=== PATIENT | female | born 1985 | race Caucasian/White ===

== ENCOUNTER 2020-03-06 17:03 | Emergency (ER) | payer MEDICAID, SELFPAY ==
[2020-03-06 18:10] VITALS: BP 121/64; PULSE 78; RESP 18; TEMP 36.8; O2SAT 99; BMI 37.5
--- NOTE | 2020-03-06 18:27 | US_ITS ---
PROCEDURE: US OB >= 14 WEEKS FETUS CLINICAL INDICATION: abdominal pain, preg Pelvic pain, irregular periods COMPARISON: No exams were available for comparison FINDINGS: An intrauterine gestational sac is present with a pole with a crown-rump length of 4.38 cm correlating to gestational age of 11 weeks 2 days. heart tones are present with an FHR of 160 BPM. movement noted. Chorion and amnion have not yet fused. No adnexal mass. Bilateral ovarian blood flow is noted. IMPRESSION: Live IUP at 11 weeks 2 days Estimated due date by Ultrasound is . 09/23/2020 Dictated by: Mg Vigil MD 03/07/2020 06:21 Mg Vigil MD in [place] 03/07/2020 06:21
--- NOTE | 2020-03-06 18:27 | HMH.EDUTC ---
[facility] [place] Clinical Impression: Abdominal pain Qualifiers: Abdominal location: unspecified location Qualified Code(s): R10.9 - Unspecified abdominal pain Disposition: Still a Patient Condition on Discharge: Good Referrals: Geneva Aaron [Primary Care Provider] - Time of Disposition: 18:35 Medical Decision Making - Geoffrey Inquiry Pt receiving controlled substance: No Geoffrey was queried for this patient: No Vital Signs: 03/06/20 18:10 Temperature 98.2 F Temperature Source Oral Pulse Rate [Right Brachial] 78 Respiratory Rate 18 Blood Pressure [Right Arm] 121/64 Blood Pressure Mean [Right Arm] 83 Blood Pressure Source [Right Arm] Automatic Cuff Blood Pressure Position [Right Arm] Sitting 02 Sat by Pulse Oximetry 99 Oxygen Delivery Method Room Air Medical Decision Narrative: Urine in [facility] was positive Patient upset that she was in the [facility] rocking back and forth holding her stomach states that she wanted to be seen in the ED not the [facility] and got up to walk out Pt informed of postive Urine and advised that she was being transferred to the ED for further work up and evaluation and patient calmed down Called ED and patient was transferred to the ED to room 5 patient transferred via wheelchair without complications [facility] [place] HPI - General Stated complaint: stomach pains Time Seen by Provider: 03/06/20 18:10 Mode of Arrival: Ambulatory Source of Information: Patient Limitations: No Limitations Description of Symptoms (Recalled from Triage Doc. by RN): PATIENT C/O ABDOMINAL PAIN AND DIARRHEA SINCE YESTERDAY. PATIENT IS HEENT Symptoms (Recalled from RN notes): No Resp Symptoms (Recalled from RN notes): No Skin Symptoms (Recalled from RN notes): No MS Symptoms (Recalled from RN notes): No Functional Status (Recalled from RN notes): WNL - History of Present Illness Provider Complaint: Patient states that she started having pain in her abdomen last night and it has continued to get worse States that she had a little diarrhea earlier and pain initially started in the middle of her abdomen and now has moved all over her abdomen and is more severe State that it feels like someone is ripping her insides out - Worker's Comp Is this a Worker's Comp case?: No [facility] History - Hepatitis A Screen Drug use history?: No High risk sexual behaviors?: No History of sexually transmitted infection?: No Currently employed?: No Childcare worker?: No Do you have indoor plumbing?: Yes Do you have electricity?: Yes Attestation statement:: This patient has been screened for Hepatitis A risk factors. I have reviewed the patient's past medical history: Yes - Social History Alcohol Intake: never Occupational Status: other ROS Obtained: Yes All systems reviewed & no additional complaints, Yes Systems reviewed as appropriate & no additional complaints - Gastrointestinal Gastrointestingal: Reports: abdominal pain, diarrhea. Denies: vomiting Physical Exam - General General appearance: alert, in no apparent distress - Respiratory Respiratory exam: Present: normal lung sounds bilaterally. Absent: respiratory distress - Cardiovascular Cardiovascular exam: Present: regular rate, normal rhythm. Absent: JVD - Abdominal Exam Abdominal tenderness: Present: epigastrium, moderate, severe Comment: Patient reports severe abdominal pain that started in the middle of her abdomen and is now hurting throughout her abdomen and rates pain 10, patient sitting on table holding stomach rocking back and forth - Neurological Exam Neurological exam: Present: alert, oriented X3
[2020-03-06 18:28] LABS: Apearance,Urine Clear (Clear); Color,Urine Yellow (Yellow)
--- NOTE | 2020-03-06 18:28 | PC.NURSE ---
Lab at bedside witnessing IV stick.
[2020-03-06 18:29] LABS: Bilirubin,Urine Negative (Negative); Blood, Urine Trace (Negative); Glucose,Urine (UA) Negative (Negative); Ketones,Urine Negative (Negative); Protein,Urine 1+ (Negative); UTC Leukocyte Esterase,Urine Trace (Negative); UTC Nitrate,Urine Negative (Negative); Urobilinogen,Urine 0.2 EU/dl (0.2)
[2020-03-06 18:31] LABS: UTC Pregnancy Test, Urine Positive (Negative)
[2020-03-06 18:37] VITALS: BP 114/82; PULSE 88; RESP 18; TEMP 37; O2SAT 99; BMI 37.6
--- NOTE | 2020-03-06 18:41 | PC.NURSE ---
at bedside doing bedside ultrasound
[2020-03-06 18:46] LABS: Basophils % 0.2 % (0.1-2.0); Eosinophils # 0.1 K/mm3 (0.0-0.4); Eosinophils % 0.8 % (0.1-12.0); Hematocrit 40.1 % (37.0-47.0); Hemoglobin 13.6 g/dL (12.2-16.2); Lymphocytes # 1.8 K/mm3 (0.7-4.5); Lymphocytes % 15.8 % (10-50); Mean Corpuscular HGB Conc 33.9 g/dL (31.8-35.4); Mean Corpuscular Hemoglobin 25.7 pg (27.0-31.2); Mean Platelet Volume 7.6 fl (7.4-10.4); Monocytes # 0.3 K/mm3 (0.1-1.0); Neutrophils # 9.3 K/mm3 (1.8-7.8); Neutrophils % 80.3 % (37.0-80.0); Platelet Count 345 K/mm3 (142-424); Red Blood Count 5.27 M/mm3 (4.20-5.40); Red Cell Distribution Width 14.3 % (11.5-17.5); White Blood Count 11.5 K/mm3 (4.8-10.8)
--- NOTE | 2020-03-06 18:47 | HMH.EDGENADL ---
ED Disposition Clinical Impression: Nausea/vomiting in Qualifiers: Weeks of gestation: 11 weeks Qualified Code(s): Z3A.11 - 11 weeks gestation of Disposition: Still a Patient Condition on Discharge: Fair Instructions: Nausea and Vomiting-Adult Referrals: Geneva Aaron [Primary Care Provider] - Time of Disposition: 19:54 - Critical Care Critical Care Time: No Attestation: On 03/06/20, the high probability of a clinically significant, sudden or life threatening deterioration of the following system(s) required my full and direct attention, intervention and personal management. The time I documented below is in addition to time spent performing reported procedures but includes the following listed in this critical care notation. Medical Decision Making - Medical Records Medical records reviewed: Yes: I reviewed the patient's medical records. - Geoffrey Inquiry Pt receiving controlled substance: No Vital Signs: 03/06/20 18:10 03/06/20 18:37 03/06/20 19:03 Temperature 98.2 F 98.6 F Temperature Source Oral Oral Pulse Rate [Right Brachial] 78 88 77 Respiratory Rate 18 18 Blood Pressure [Right Arm] 121/64 114/82 131/97 H Blood Pressure Mean [Right Arm] 83 92 108 Blood Pressure Source [Right Arm] Automatic Cuff Automatic Cuff Automatic Cuff Blood Pressure Position [Right Arm] Sitting Sitting Sitting 02 Sat by Pulse Oximetry 99 99 98 Oxygen Delivery Method Room Air Room Air Room Air - Lab Data Lab Results 03/06/20 18:11: Urine Color Yellow, Urine Appearance Clear, Urine pH 7.0, Ur Specific [place] 1.030, Urine Protein 1+, Urine Glucose (UA) Negative, Urine Ketones Negative, Urine Blood Trace, Urine Nitrate Negative, Urine Bilirubin Negative, Urine Urobilinogen 0.2, Ur Leukocyte Esterase Trace 03/06/20 18:30: [facility] Clinic Positive 03/06/20 18:35: WBC 11.5 H, RBC 5.27, Hgb 13.6, Hct 40.1, MCV 76.0 L, MCH 25.7 L, MCHC 33.9, RDW 14.3, Plt Count 345, MPV 7.6, Neut % (Auto) 80.3 H, Lymph % (Auto) 15.8, [place] % (Auto) 3.0, Eos % (Auto) 0.8, Baso % (Auto) 0.2, Neut # (Auto) 9.3 H, Lymph # (Auto) 1.8, [place] # (Auto) 0.3, Eos # (Auto) 0.1, Baso # (Auto) 0.0 03/06/20 18:35: Sodium 136, Potassium 3.7, Chloride 100, Carbon Dioxide 24, Anion Gap 15.7 H, BUN 8, Creatinine 0.60, Estimated Creat Clear 227, Estimated GFR 114, Est GFR ( Amer) 138, Glucose 98, Calcium 9.9, Total Bilirubin 0.6, AST 23, ALT 16, Alkaline Phosphatase 73, Total Protein 8.3 H, Albumin 4.6, Globulin 3.7 H, Albumin/Globulin Ratio 1.2, HCG, Quant [id number] Result diagrams: 03/06/20 18:35 03/06/20 18:35 Orders (Tests/Meds): ORDERS Category Date Time Status Type and Screen Stat BBK 03/06/20 18:35 Received US OB >= 14 weeks Fetus Stat Ultrasound 03/06/20 18:27 Taken Medical Decision Narrative: In summary this is a 34-year-old female presenting to the emergency department with cramping abdominal pain. Patient's urine test was positive in the urgent treatment center. She is G3, P2. Concern for ectopic , intrauterine . Will obtain CBC, CMP, quantitative hCG, urinalysis, transvaginal ultrasound Initial laboratory results are reassuring. Slight leukocytosis at 11 K. No renal insufficiency. No anemia. Urinalysis shows no leukoesterase or nitrites. Transvaginal ultrasound shows an intrauterine , approximately 11 weeks. On reassessment patient has had no nausea or vomiting. Her pain was much improved. She was feeling better, tolerating oral intake, eager for discharge. Counseled that women are not immune to other illnesses like appendicitis or pyelonephritis. However, her abdominal exam is very benign at this time. Given prescription for doxylamine and pyridoxine. Recommended to take as needed for nausea. Instructed to establish with [facility]. General Adult HPI - General Stated complaint: stomach pains Time Seen by Provider: 03/06/20 18:10 Mode of
[2020-03-06 18:53] LABS: Alanine Aminotransferase 16 U/L (12-78); Albumin Level 4.6 g/dl (3.5-5.0); Albumin/Globulin Ratio 1.2 (1.1-1.8); Alkaline Phosphatase 73 U/L (38-126); Anion Gap 15.7 mEq/L (5-15); Aspartate Amino Transferase 23 U/L (14-36); Bilirubin,Total 0.6 mg/dl (0.2-1.3); Blood Urea Nitrogen 8 mg/dl (7-17); Calcium 9.9 mg/dl (8.4-10.2); Carbon Dioxide 24 mmol/L (22.0-30.0); Chloride 100 mmol/L (98-107); Creatinine Clearance Estimated 227 mL/min (50-200); Estimated Glomerular Filt Rate 114 ml/min (>60); GFR (African American) 138 ML/MIN (>60); Globulin 3.7 g/dL (1.3-3.2); Glucose 98 mg/dl (74-100); Potassium 3.7 mmoL/L (3.5-5.1); Sodium 136 mmol/L (136-145); Total Protein,Serum 8.3 g/dl (6.3-8.2)
[2020-03-06 19:03] VITALS: BP 131/97; PULSE 77; O2SAT 98
--- NOTE | 2020-03-06 19:41 | PC.NURSE ---
pt back from US.
[2020-03-06 20:10] VITALS: BP 121/88; PULSE 83; RESP 16; TEMP 36.9; O2SAT 99
== END 2020-03-06 20:12 | disposition still patient (30) ==
LOC: UTC 17:08 → ER 18:22
PROVIDERS: Nurse Practitioner; Emergency Provider Emergency Medicine; PCP General Practice
DX: O21.0 Mild hyperemesis gravidarum (principal); Z3A.11 11 weeks gestation of pregnancy
CPT/HCPCS: 76805; 80053; 81003; 81025; 84702; 85025; 86850; 99283

== ENCOUNTER → 2020-03-14 17:09 | Outpatient (CLI) | payer MEDICAID, SELFPAY ==
[2020-03-14 17:34] LABS: Basophils % 0.2 % (0.1-2.0); Eosinophils # 0.1 K/mm3 (0.0-0.4); Eosinophils % 1.2 % (0.1-12.0); Hematocrit 37.9 % (37.0-47.0); Hemoglobin 11.7 g/dL (12.2-16.2); Lymphocytes # 1.9 K/mm3 (0.7-4.5); Lymphocytes % 22.4 % (10-50); Mean Corpuscular HGB Conc 30.9 g/dL (31.8-35.4); Mean Corpuscular Hemoglobin 24.8 pg (27.0-31.2); Mean Corpuscular Volume 80.2 fl (81-99); Mean Platelet Volume 6.7 fl (7.4-10.4); Monocytes # 0.3 K/mm3 (0.1-1.0); Monocytes % 3.7 % (1.7-9.3); Neutrophils # 6.2 K/mm3 (1.8-7.8); Neutrophils % 72.5 % (37.0-80.0); Platelet Count 306 K/mm3 (142-424); Red Blood Count 4.72 M/mm3 (4.20-5.40); Red Cell Distribution Width 14.1 % (11.5-17.5); White Blood Count 8.6 K/mm3 (4.8-10.8)
[2020-03-16 10:04] LABS: HIV Screen 4th Generation wRfx Non Reactive (Non Reactive); Rubella Antibodies, IgG 3.97 index (Immune >0.99)
[2020-03-16 12:46] LABS: Rapid Plasma Reagin Ab Titer Non Reactive (NonRea<1:1)
[2020-03-17 19:37] LABS: Hepatitis B Surface Antigen Negative (Negative); Hepatitis C Antibody <0.1 s/co ratio (0.0-0.9)
== END ==
PROVIDERS: Visit Provider Nurse Practitioner Obstetrics & Gynecology
DX: Z34.90 Encounter for supervision of normal pregnancy, unspecified, unspecified trimester (principal); Z3A.12 12 weeks gestation of pregnancy
CPT/HCPCS: 36415; 85025; 86592; 86703; 86762; 86850; 87340; 87380; G0432

== ENCOUNTER → 2020-04-11 12:18 | Outpatient (CLI) | payer MEDICAID, SELFPAY ==
[2020-04-13 01:07] LABS: DIA MoM 1.05 (.); DIA Value 129.39 pg/mL (.); DSR (Second Trimester) 1 IN 699 (.); Gest. Age on Collection Date 16.4 WEEKS (.); Maternal Age At EDD 34.8 yr (.); OSBR Risk 1 IN 10000 (.); Results Report (.); hCG MoM 1.79 (.); hCG Value 48575 mIU/mL (.); uE3 MoM 0.86 (.); uE3 Value 0.79 ng/mL (.)
[2020-04-13 05:29] LABS: Gestat. Age Based On EDD (.)
== END ==
PROVIDERS: Visit Provider Nurse Practitioner Obstetrics & Gynecology
DX: Z34.90 Encounter for supervision of normal pregnancy, unspecified, unspecified trimester (principal)
CPT/HCPCS: 36415; 82106

== ENCOUNTER 2020-04-19 12:32 | Emergency (ER) | payer MEDICAID, SELFPAY ==
[2020-04-19 12:33] VITALS: BP 109/73; PULSE 92; RESP 20; TEMP 36.6; O2SAT 98; BMI 37.5
[2020-04-19 12:51] LABS: Appearance,Urine CLEAR (Clear); Bilirubin,Urine Negative (Negative); Blood, Urine Negative (Negative); Color,Urine YELLOW (Yellow); Glucose,Urine (UA) Negative (Negative); Ketones,Urine Negative (Negative); Leukocyte Esterase,Urine 1+ (Negative); Microscopic, Urine URINE MICROSCOPIC (MICROSCOPIC); Nitrate,Urine Negative (Negative); PH,Urine 6.5 (5.0-8.5); Protein,Urine Negative (Negative); Urobilinogen,Urine 0.2 EU/dl (0.2)
[2020-04-19 13:07] LABS: Bacteria,Urine 1+ /lpf
--- NOTE | 2020-04-19 13:21 | US_ITS ---
PROCEDURE: US OB >= 14 WEEKS FETUS CLINICAL INDICATION: Preg, pain COMPARISON: US US OB >= 14 WEEKS FETUS from 03/06/2020 FINDINGS: Approximate ultrasound age 17weeks 4days. Heart rate 143bpm. Cervix length 3.8 centimeters, closed. Cephalic presentation. Anterior placenta. Uterine fibroid. The biparietal diameter consistent with gestational age 17 weeks 6 days. Head circumference consistent with 17 weeks 3 days Abdominal circumference consistent with 17 weeks 2 days Femur length consistent with 17 weeks 5 days HC/AC 1.23 (1.07-1.29) Cephalic index 77 % Femur length BPD 65 % FL/AC 22 % LMP% 35% (3-97%) Maternal left kidney negative for hydronephrosis. Maternal spleen unremarkable. IMPRESSION: ultrasound findings as above. Estimated due date by Ultrasound is 09/23/2020 Dictated by: Oma Pena MD 04/19/2020 15:05 Oma Pena MD in [place] 04/19/2020 15:05
--- NOTE | 2020-04-19 13:39 | PC.NURSE ---
pt in US
[2020-04-19 13:44] LABS: Chloride 106 mmol/L (98-107); Sodium 135 mmol/L (136-145)
[2020-04-19 13:47] LABS: Alanine Aminotransferase 12 U/L (12-78); Albumin Level 3.5 g/dl (3.5-5.0); Albumin/Globulin Ratio 1.1 (1.1-1.8); Alkaline Phosphatase 49 U/L (38-126); Aspartate Amino Transferase 17 U/L (14-36); Bilirubin,Total 0.4 mg/dl (0.2-1.3); Blood Urea Nitrogen 8 mg/dl (7-17); Carbon Dioxide 24 mmol/L (22.0-30.0); Creatinine Clearance Estimated 272 mL/min (50-200); Estimated Glomerular Filt Rate 141 ml/min (>60); GFR (African American) 171 ML/MIN (>60); Globulin 3.2 g/dL (1.3-3.2); Glucose 105 mg/dl (74-100); Total Protein,Serum 6.7 g/dl (6.3-8.2)
[2020-04-19 13:49] LABS: Basophils % 0.1 % (0.1-2.0); Eosinophils # 0.1 K/mm3 (0.0-0.4); Eosinophils % 0.9 % (0.1-12.0); Hematocrit 35.2 % (37.0-47.0); Hemoglobin 11.4 g/dL (12.2-16.2); Lymphocytes # 1.8 K/mm3 (0.7-4.5); Lymphocytes % 19.2 % (10-50); Mean Corpuscular HGB Conc 32.2 g/dL (31.8-35.4); Mean Corpuscular Volume 80.8 fl (81-99); Mean Platelet Volume 7.1 fl (7.4-10.4); Monocytes # 0.3 K/mm3 (0.1-1.0); Monocytes % 3.7 % (1.7-9.3); Neutrophils % 76.2 % (37.0-80.0); Platelet Count 267 K/mm3 (142-424); Red Blood Count 4.36 M/mm3 (4.20-5.40); Red Cell Distribution Width 15.2 % (11.5-17.5); White Blood Count 9.2 K/mm3 (4.8-10.8)
--- NOTE | 2020-04-19 13:50 | HMH.EDGENADL ---
ED Disposition Clinical Impression: Abdominal pain affecting Disposition: Home, Self-Care Condition on Discharge: Good Instructions: DI for Abdominal Pain -- Early Referrals: Geneva Aaron [Primary Care Provider] - - Critical Care Critical Care Time: No Attestation: On 04/19/20, the high probability of a clinically significant, sudden or life threatening deterioration of the following system(s) required my full and direct attention, intervention and personal management. The time I documented below is in addition to time spent performing reported procedures but includes the following listed in this critical care notation. Medical Decision Making - Medical Records Medical records reviewed: Yes: I reviewed the patient's medical records. - Geoffrey Inquiry Pt receiving controlled substance: No Vital Signs: 04/19/20 12:33 04/19/20 14:11 Temperature 98 F Temperature Source Oral Pulse Rate [Radial] 92 H 82 Respiratory Rate 20 18 Blood Pressure [Right Arm] 109/73 L 108/66 L Blood Pressure Mean [Right Arm] 85 80 Blood Pressure Position [Right Arm] Sitting 02 Sat by Pulse Oximetry 98 100 Oxygen Delivery Method Room Air - Lab Data Lab Results 04/19/20 12:40: Urine Color Yellow, Urine Appearance Clear, Urine pH 6.5, Ur Specific [place] 1.020, Urine Protein Negative, Urine Glucose (UA) Negative, Urine Ketones Negative, Urine Blood Negative, Urine Nitrate Negative, Urine Bilirubin Negative, Urine Urobilinogen 0.2, Ur Leukocyte Esterase 1+ A, Urine RBC 3-5, Urine WBC 5-10, Ur Squamous Epith Cells 3-5, Urine Bacteria 1+ 04/19/20 13:25: WBC 9.2, RBC 4.36, Hgb 11.4 L, Hct 35.2 L, MCV 80.8 L, MCH 26.0 L, MCHC 32.2, RDW 15.2, Plt Count 267, MPV 7.1 L, Neut % (Auto) 76.2, Lymph % (Auto) 19.2, [place] % (Auto) 3.7, Eos % (Auto) 0.9, Baso % (Auto) 0.1, Neut # (Auto) 7.0, Lymph # (Auto) 1.8, [place] # (Auto) 0.3, Eos # (Auto) 0.1, Baso # (Auto) 0.0 04/19/20 13:25: Sodium 135 L, Potassium 4.0, Chloride 106, Carbon Dioxide 24, Anion Gap 9.0, BUN 8, Creatinine 0.50 L, Estimated Creat Clear 272, Estimated GFR 141, Est GFR ( Amer) 171, Glucose 105 H, Calcium 9.0, Total Bilirubin 0.4, AST 17, ALT 12, Alkaline Phosphatase 49, Total Protein 6.7, Albumin 3.5, Globulin 3.2, Albumin/Globulin Ratio 1.1 04/19/20 13:25: HCG, Quant [id number] Result diagrams: 04/19/20 13:25 04/19/20 13:25 Orders (Tests/Meds): ED MEDICATIONS Discontinued Medications Generic Name Dose Route Start Last Admin Trade Name Freq PRN Reason Stop Dose Admin Acetaminophen 500 mg 04/19/20 13:21 04/19/20 14:04 Acetaminophen 500mg Tab PO 04/19/20 13:22 500 mg ONCE ONE Administration Diphenhydramine HCl 25 mg 04/19/20 13:21 04/19/20 14:04 Diphenhydramine 50mg/Ml Vial IV 04/19/20 13:22 25 mg ONCE ONE Administration Sodium Chloride 1,000 mls @ 999 mls/hr 04/19/20 13:30 04/19/20 14:04 Sod Chlor 0.9% 1000ml Bag IV 04/19/20 14:30 999 mls/hr .Q1H1M MARQUITA Administration ORDERS Category Date Time Status Urine Culture Stat Micro 04/19/20 12:40 Received US OB >= 14 weeks Fetus Stat Ultrasound 04/19/20 13:21 Taken - Radiology Data #1 Image(s): Other (TVUS) Image Reviewed: Yes I reviewed the patient's radiology results, Yes I have reviewed radiologist's interpretation normal IUP - Reevaluation(s) Time: 14:47 Reevaluation #1: On reevaluation, the patient is feeling much better. Repeat abdominal exam is benign. Patient is tolerating oral intake without significant difficulty. Patient's ultrasound was unremarkable. Blood work appears to be within normal limits. She does have some bacteria in her urine, however there are significant epithelial cells as well. I did discuss this with the patient and she would like to follow-up with her [facility] regarding treatment of this. Patient was given strict return precautions. Verbalized understanding. Medical Decision Narrative: This is a 34-year-old
--- NOTE | 2020-04-19 14:05 | PC.NURSE ---
pt requesting a lunch tray
[2020-04-19 14:11] VITALS: BP 108/66; PULSE 82; RESP 18; O2SAT 100
[2020-04-19 14:38] LABS: HCG,Quantitative 18106 mIU/ml (0-5.42)
[2020-04-19 15:10] VITALS: BP 100/53; PULSE 73; RESP 18; TEMP 36.6; O2SAT 98
== END 2020-04-19 15:11 | disposition home or self-care (01) ==
PROVIDERS: Emergency Provider Emergency Medicine; PCP General Practice
DX: O26.892 Other specified pregnancy related conditions, second trimester (principal); Z3A.17 17 weeks gestation of pregnancy
CPT/HCPCS: 76805; 80053; 81001; 84702; 85025; 87086; 96365; 96375; 99283

== ENCOUNTER 2020-04-23 16:54 | Emergency (ER) | payer MEDICAID, SELFPAY ==
[2020-04-23 16:56] VITALS: BP 104/72; PULSE 72; RESP 18; RESP 20; TEMP 37; O2SAT 97; O2SAT 98; BMI 37.5
--- NOTE | 2020-04-23 17:23 | XR_ITS ---
PROCEDURE: XR CHEST PORTABLE CLINICAL HISTORY: cough COMPARISON: No exams were available for comparison FINDINGS: The cardiomediastinal silhouette and pulmonary vascularity are within normal limits. The lungs are clear without infiltrates, suspicious nodules, or pleural effusions. Mild lower thoracic curvature convex right. IMPRESSION: No acute findings. Dictated by: Mg Vigil MD 04/23/2020 18:29 Mg Vigil MD in [place] 04/23/2020 18:29
[2020-04-23 17:26] VITALS: BP 102/66; PULSE 89; RESP 18; O2SAT 96
[2020-04-23 18:00] VITALS: BP 99/61; PULSE 67; RESP 18; O2SAT 96
[2020-04-23 18:25] LABS: Microscopic, Urine URINE MICROSCOPIC (MICROSCOPIC)
[2020-04-23 18:29] LABS: Basophils % 0.1 % (0.1-2.0); Eosinophils # 0.1 K/mm3 (0.0-0.4); Eosinophils % 1.3 % (0.1-12.0); Hematocrit 34.3 % (37.0-47.0); Hemoglobin 10.8 g/dL (12.2-16.2); Lymphocytes # 1.8 K/mm3 (0.7-4.5); Mean Corpuscular HGB Conc 31.7 g/dL (31.8-35.4); Mean Corpuscular Hemoglobin 26.1 pg (27.0-31.2); Mean Corpuscular Volume 82.5 fl (81-99); Mean Platelet Volume 7.4 fl (7.4-10.4); Monocytes # 0.4 K/mm3 (0.1-1.0); Monocytes % 4.1 % (1.7-9.3); Neutrophils # 6.4 K/mm3 (1.8-7.8); Neutrophils % 73.6 % (37.0-80.0); Platelet Count 267 K/mm3 (142-424); Red Blood Count 4.15 M/mm3 (4.20-5.40); Red Cell Distribution Width 15.1 % (11.5-17.5); White Blood Count 8.7 K/mm3 (4.8-10.8)
[2020-04-23 18:30] VITALS: BP 96/60; PULSE 65; RESP 20; O2SAT 98
[2020-04-23 18:32] LABS: Chloride 104 mmol/L (98-107); Potassium 3.7 mmoL/L (3.5-5.1); Sodium 135 mmol/L (136-145)
[2020-04-23 18:34] LABS: Blood Urea Nitrogen 8 mg/dl (7-17); Creatinine Clearance Estimated 272 mL/min (50-200); Estimated Glomerular Filt Rate 141 ml/min (>60); GFR (African American) 171 ML/MIN (>60)
[2020-04-23 18:35] LABS: Alanine Aminotransferase 12 U/L (12-78); Albumin Level 3.8 g/dl (3.5-5.0); Albumin/Globulin Ratio 1.2 (1.1-1.8); Alkaline Phosphatase 56 U/L (38-126); Anion Gap 7.7 mEq/L (5-15); Aspartate Amino Transferase 18 U/L (14-36); Bilirubin,Total 0.3 mg/dl (0.2-1.3); Calcium 9.1 mg/dl (8.4-10.2); Carbon Dioxide 27 mmol/L (22.0-30.0); Globulin 3.2 g/dL (1.3-3.2); Glucose 88 mg/dl (74-100)
--- NOTE | 2020-04-23 18:35 | HMH.EDDIZZ ---
ED Disposition Clinical Impression: Vasovagal syncope, Bacteriuria during Qualifiers: Weeks of gestation: 17 weeks Qualified Code(s): Z3A.17 - 17 weeks gestation of Disposition: Home, Self-Care Condition on Discharge: Good Instructions: DI for Syncope in Adults (Fainting) Prescriptions: Nitrofurantoin Monohyd/M-Cryst [Macrobid 100 mg Capsule] 100 mg PO BID 7 Days #14 cap Transmission Status: Pending to Clinic [facility] Referrals: Geneva Aaron [Primary Care Provider] - - Critical Care Critical Care Time: No Attestation: On 04/23/20, the high probability of a clinically significant, sudden or life threatening deterioration of the following system(s) required my full and direct attention, intervention and personal management. The time I documented below is in addition to time spent performing reported procedures but includes the following listed in this critical care notation. Medical Decision Making - Medical Records Medical records reviewed: Yes: I reviewed the patient's medical records. - Geoffrey Inquiry Pt receiving controlled substance: No Vital Signs: 04/23/20 16:56 04/23/20 17:26 04/23/20 18:00 Temperature 98.6 F Temperature Source Oral Pulse Rate [Left Radial] 72 89 67 Respiratory Rate 20 18 18 Blood Pressure [Right Arm] 104/72 L 102/66 L 99/61 L Blood Pressure Mean [Right Arm] 82 78 73 Blood Pressure Source [Right Arm] Automatic Cuff Blood Pressure Position [Right Arm] Sitting 02 Sat by Pulse Oximetry 97 96 96 Oxygen Delivery Method Room Air 04/23/20 18:30 Temperature Temperature Source Pulse Rate [Left Radial] 65 Respiratory Rate 20 Blood Pressure [Right Arm] 96/60 L Blood Pressure Mean [Right Arm] 72 Blood Pressure Source [Right Arm] Automatic Cuff Blood Pressure Position [Right Arm] Sitting 02 Sat by Pulse Oximetry 98 Oxygen Delivery Method - Lab Data Lab Results 04/23/20 17:23: Urine Color Yellow, Urine Appearance Cloudy, Urine pH 6.5, Ur Specific [place] 1.025, Urine Protein Negative, Urine Glucose (UA) Negative, Urine Ketones Negative, Urine Blood Trace-l, Urine Nitrate Negative, Urine Bilirubin Negative, Urine Urobilinogen 0.2, Ur Leukocyte Esterase 1+ A, Urine RBC Occasional, Urine WBC 5-10, Ur Squamous Epith Cells 10-20, Calcium Oxalate Crystal 2+, Urine Bacteria 1+ 02/22/21 18:01: WBC 8.7, RBC 4.15 L, Hgb 10.8 L, Hct 34.3 L, MCV 82.5, MCH 26.1 L, MCHC 31.7 L, RDW 15.1, Plt Count 267, MPV 7.4, Neut % (Auto) 73.6, Lymph % (Auto) 21.0, [place] % (Auto) 4.1, Eos % (Auto) 1.3, Baso % (Auto) 0.1, Neut # (Auto) 6.4, Lymph # (Auto) 1.8, [place] # (Auto) 0.4, Eos # (Auto) 0.1, Baso # (Auto) 0.0 04/23/20 18:01: Sodium 135 L, Potassium 3.7, Chloride 104, Carbon Dioxide 27, Anion Gap 7.7, BUN 8, Creatinine 0.50 L, Estimated Creat Clear 272, Estimated GFR 141, Est GFR ( Amer) 171, Glucose 88, Calcium 9.1, Total Bilirubin 0.3, AST 18, ALT 12, Alkaline Phosphatase 56, Troponin I < 0.01, Total Protein 7.0, Albumin 3.8, Globulin 3.2, Albumin/Globulin Ratio 1.2, TSH 1.34 Result diagrams: 04/23/20 18:01 04/23/20 18:01 Orders (Tests/Meds): ED MEDICATIONS Generic Name Dose Route Start Last Admin Trade Name Freq PRN Reason Stop Dose Admin Sodium Chloride 1,000 mls @ 999 mls/hr 04/23/20 17:30 04/23/20 17:49 Sod Chlor 0.9% 1000ml Bag IV 04/23/20 18:30 999 mls/hr .Q1H1M MARQUITA Administration Discontinued Medications Generic Name Dose Route Start Last Admin Trade Name Freq PRN Reason Stop Dose Admin Acetaminophen 1,000 mg 04/23/20 17:24 04/23/20 17:48 Acetaminophen 500mg Tab PO 04/23/20 17:25 1,000 mg ONCE ONE Administration ORDERS Category Date Time Status Troponin I Q3H Lab 04/23/20 20:30 Ordered Troponin I Q3H Lab 04/23/20 23:30 Ordered Urine Culture Stat Micro 04/23/20 17:23 Received - ECG Data Tracing #1 I reviewed this ECG and interpreted as documented below: ECG initial impression jeremiah
[2020-04-23 18:40] LABS: Appearance,Urine CLOUDY (Clear); Bilirubin,Urine Negative (Negative); Blood, Urine TRACE-L (Negative); Color,Urine YELLOW (Yellow); Glucose,Urine (UA) Negative (Negative); Ketones,Urine Negative (Negative); Leukocyte Esterase,Urine 1+ (Negative); Nitrate,Urine Negative (Negative); PH,Urine 6.5 (5.0-8.5); Protein,Urine Negative (Negative); Specific Gravity, Urine 1.025 (1.005-1.030); Urobilinogen,Urine 0.2 EU/dl (0.2)
--- NOTE | 2020-04-23 18:43 | ECG_ITS ---
APPROVED REPORT Exam: Resting ECG HR:62 bpm ECG Measurements Heart Rate 62 AXES OR 138 P 33 QRSd 76 QRS 31 QT 436 T 38 QTc 442 Conclusion Normal sinus rhythm Normal ECG Electronically signed by : Vahe Jimenez, 04/24/2020 08:46:15
[2020-04-23 18:49] LABS: Troponin I < 0.01 ng/ml (0.00-0.034)
[2020-04-23 19:06] LABS: Thyroid Stimulating Hormone 1.34 uIU/mL (0.465-4.68)
[2020-04-23 19:33] LABS: Bacteria,Urine 1+ /lpf; Calcium Oxalate Crystals,Urine 2+ /lpf; RBC,Urine Occasional #/hpf (0-3)
[2020-04-23 20:12] VITALS: BP 101/61; PULSE 70; RESP 17; TEMP 36.7; O2SAT 98
== END 2020-04-23 20:13 | disposition home or self-care (01) ==
PROVIDERS: Emergency Provider Emergency Medicine; PCP General Practice
DX: O99.891 Other specified diseases and conditions complicating pregnancy (principal); R55 Syncope and collapse
CPT/HCPCS: 71045; 80053; 81001; 84443; 84484; 85025; 87086; 93005; 96365; 99284

== ENCOUNTER → 2020-05-07 12:51 | Outpatient (CLI) | payer MEDICAID, SELFPAY ==
--- NOTE | 2020-05-07 12:56 | US_ITS ---
PROCEDURE: US OB /MATERNAL DETAIL CLINICAL INDICATION: 20 week gestation of Anatomy scan COMPARISON: US US OB >= 14 WEEKS FETUS from 04/19/2020 FINDINGS: There is a single live fetus present which is in breech presentation. The cervix is closed measuring 4 cm. The placenta is anterior and grade 1. Complete survey performed and was unremarkable on the submitted images as in PACS. No discrete anomalies identified on survey imaging by technologist. Active fetus. Three-vessel cord with satisfactory umbilical cord insertion. 4- chamber heart noted. Survey of brain & ventricles Unremarkable. Face and neck survey unremarkable. Diaphragm and chest views unremarkable. Abdomen: Both kidneys noted and unremarkable. Stomach noted and satisfactory. Spine: Survey of the spine satisfactory with no anomalies identified nor imaged. Both arms and legs noted. Amniotic Fluid: Adequate. Maternal adnexa: No significant findings. Measurements: Average ultrasound age 20weeks 2days. Gestational Age 20weeks 1day Estimated due date by ultrasound age 0709/22/2020. Estimated weight 357g BPD = 19weeks 6days OFD = 20weeks 5days HC = 19weeks 4days AC = 20weeks 3days FL = 21weeks Growth Percentile= 66Percent% Heart Rate = 147bpm Cerebellum = 20weeks 3days Humerus = 20weeks 6days HC/AC is 1.12 CI is 0.74 FL/BPD is 0.77 FL/AC is 0.23 IMPRESSION: There is a single live intrauterine gestation with an average ultrasound age of 20 weeks 2 days. There is breech position. No obvious anomalies with all parameters correlating. Please see above for detail. Dictated by: Mg Vigil MD 05/09/2020 11:37 Mg Vigil MD in [place] 05/09/2020 11:37
== END ==
PROVIDERS: PCP General Practice; Visit Provider Nurse Practitioner Obstetrics & Gynecology
DX: Z34.90 Encounter for supervision of normal pregnancy, unspecified, unspecified trimester (principal); Z3A.20 20 weeks gestation of pregnancy
CPT/HCPCS: 76811

== ENCOUNTER 2020-06-21 11:09 | Outpatient (CLI) | payer MEDICAID, SELFPAY ==
[2020-06-21 12:01] LABS: Glucose,Fasting 88 mg/dl (74-100)
[2020-06-21 13:00] VITALS: BP 136/51; PULSE 89; RESP 20; TEMP 36.2; O2SAT 98
[2020-06-21 13:26] LABS: Glucose 1 Hour 148 mg/dL (74-100)
== END 2020-06-21 13:15 | disposition home or self-care (01) ==
LOC: LAB 11:09 → INF 12:57
PROVIDERS: PCP General Practice; Visit Provider Nurse Practitioner Obstetrics & Gynecology
DX: Z34.90 Encounter for supervision of normal pregnancy, unspecified, unspecified trimester (principal)
CPT/HCPCS: 36415; 82951; 96372; J2790

== ENCOUNTER → 2020-07-16 10:08 | Outpatient (CLI) | payer MEDICAID, SELFPAY ==
[2020-07-16 10:53] LABS: Glucose,Fasting 93 mg/dl (74-100)
[2020-07-16 12:38] LABS: Glucose 1 Hour 166 mg/dL (74-100)
[2020-07-16 14:14] LABS: Glucose 2 Hour 114 mg/dL (74-100)
[2020-07-16 14:29] LABS: Glucose 3 Hour 82 mg/dL (74-100)
== END ==
PROVIDERS: Visit Provider Nurse Practitioner Obstetrics & Gynecology
DX: Z34.90 Encounter for supervision of normal pregnancy, unspecified, unspecified trimester (principal)
CPT/HCPCS: 36415; 82951

== ENCOUNTER 2020-08-07 19:14 | Outpatient (CLI) | payer MEDICAID, SELFPAY ==
[2020-08-07 19:24] VITALS: BMI 42.9
[2020-08-07 19:41] VITALS: RESP 20; TEMP 36.5; O2SAT 97; BMI 42.9
[2020-08-07 19:47] LABS: Microscopic, Urine URINE MICROSCOPIC (MICROSCOPIC)
[2020-08-07 19:55] LABS: Bilirubin,Urine Negative (Negative); Blood, Urine 3+ (Negative); Color,Urine YELLOW (Yellow); Glucose,Urine (UA) Negative (Negative); Ketones,Urine Negative (Negative); Leukocyte Esterase,Urine Negative (Negative); Nitrate,Urine Negative (Negative); PH,Urine 5.5 (5.0-8.5); Protein,Urine 1+ (Negative); Specific Gravity, Urine >= 1.030 (1.005-1.030); Urobilinogen,Urine 0.2 EU/dl (0.2)
[2020-08-07 19:56] LABS: Appearance,Urine Slightly Cloudy (Clear)
[2020-08-07 20:02] LABS: Fetal Membrane Rupture (Rapid) Negative (Negative)
[2020-08-07 20:07] LABS: Amphetamine/Metha Screen,Urine Negative ng/ml (<1000); Benzodiazepines Screen,Urine Negative ng/ml (<200)
[2020-08-07 20:08] LABS: Barbiturates Screen,Urine Negative ng/ml (<200)
[2020-08-07 20:09] LABS: Cannabinoid Screen,Urine Negative ng/ml (<50)
[2020-08-07 20:10] LABS: Cocaine Screen,Urine Negative ng/ml (<300); Methadone Screen,Urine Negative ng/ml (<300)
[2020-08-07 20:11] LABS: Bacteria,Urine 1+ /lpf; Calcium Oxalate Crystals,Urine 1+ /lpf; Mucus,Urine 1+ /lpf; Opiate Screen,Urine Positive ng/ml (<300); Phencyclidine Screen,Urine Negative ng/ml (<25); Squamous Epithelial Cell,Urine TNTC #/hpf (0-5)
[2020-08-07 20:27] LABS: Fetal Fibronectin (Rapid) Negative (Negative)
== END 2020-08-07 21:20 | disposition home or self-care (01) ==
LOC: OBOUT 19:18 → OB 19:19
PROVIDERS: PCP Nurse Practitioner Obstetrics & Gynecology; Visit Provider Obstetrics & Gynecology
DX: O36.8130 Decreased fetal movements, third trimester, not applicable or unspecified (principal); Z3A.33 33 weeks gestation of pregnancy; R10.2 Pelvic and perineal pain
CPT/HCPCS: 59025; 80305; 81001; 82731; 84112; 87086; 96365; 96372; G0463

== ENCOUNTER 2020-08-08 17:17 | Outpatient (CLI) | payer MEDICAID, SELFPAY ==
[2020-08-08 17:45] VITALS: BP 129/93; PULSE 89; RESP 20; TEMP 36.7; O2SAT 97; BMI 43.0
== END 2020-08-08 18:00 | disposition home or self-care (01) ==
LOC: OBOUT 17:21 → OB 17:24
PROVIDERS: PCP Nurse Practitioner Obstetrics & Gynecology; Visit Provider Nurse Practitioner Obstetrics & Gynecology
DX: O26.893 Other specified pregnancy related conditions, third trimester (principal); Z3A.33 33 weeks gestation of pregnancy
CPT/HCPCS: 96372; G0463

== ENCOUNTER 2020-08-09 20:38 | Outpatient (CLI) | payer MEDICAID, SELFPAY ==
[2020-08-09 20:54] VITALS: BMI 42.9
[2020-08-09 21:15] LABS: Microscopic, Urine URINE MICROSCOPIC (MICROSCOPIC)
[2020-08-09 21:16] LABS: Appearance,Urine CLEAR (Clear); Bilirubin,Urine Negative (Negative); Blood, Urine 3+ (Negative); Color,Urine YELLOW (Yellow); Glucose,Urine (UA) Negative (Negative); Ketones,Urine Negative (Negative); Leukocyte Esterase,Urine Negative (Negative); Nitrate,Urine Negative (Negative); Protein,Urine 1+ (Negative); Specific Gravity, Urine >= 1.030 (1.005-1.030); Urobilinogen,Urine 0.2 EU/dl (0.2)
[2020-08-09 21:19] VITALS: BP 151/95; PULSE 83; RESP 18; TEMP 37.3; O2SAT 95; BMI 42.9
[2020-08-09 21:22] LABS: Fetal Membrane Rupture (Rapid) Negative (Negative)
[2020-08-09 21:25] LABS: Bacteria,Urine Trace /lpf
[2020-08-09 21:28] LABS: Benzodiazepines Screen,Urine Negative ng/ml (<200)
[2020-08-09 21:29] LABS: Amphetamine/Metha Screen,Urine Negative ng/ml (<1000); Barbiturates Screen,Urine Negative ng/ml (<200)
[2020-08-09 21:30] LABS: Cannabinoid Screen,Urine Negative ng/ml (<50); Methadone Screen,Urine Negative ng/ml (<300)
[2020-08-09 21:31] LABS: Cocaine Screen,Urine Negative ng/ml (<300)
[2020-08-09 21:32] LABS: Opiate Screen,Urine Positive ng/ml (<300)
[2020-08-09 21:33] LABS: Phencyclidine Screen,Urine Negative ng/ml (<25)
== END 2020-08-09 23:50 | disposition home or self-care (01) ==
LOC: OBOUT 20:42 → OB 20:43
PROVIDERS: PCP Nurse Practitioner Obstetrics & Gynecology; Visit Provider Obstetrics & Gynecology
DX: O47.03 False labor before 37 completed weeks of gestation, third trimester (principal); Z3A.33 33 weeks gestation of pregnancy; R10.2 Pelvic and perineal pain
CPT/HCPCS: 59025; 80305; 81001; 84112; 87086; 96365; 96372; G0463

== ENCOUNTER → 2020-08-10 09:27 | Outpatient (CLI) | payer MEDICAID, SELFPAY ==
--- NOTE | 2020-08-10 09:28 | US_ITS ---
PROCEDURE: US OB FOLLOW UP CLINICAL INDICATION: lga Large for gestational age COMPARISON: US US OB /MATERNAL DETAIL from 05/07/2020 FINDINGS: There is a single live fetus present which is in cephalic presentation. heart and body motion noted. The cervix is closed at 4 cm. The placenta is anterior and grade 2. Amniotic fluid index is normal at 20 cm Biophysical profile 8 of 8. Measurements: Average ultrasound age 35weeks 6days. Gestational Age 35weeks 6days Estimated due date by ultrasound age 0709/08/2020. Estimated weight 2,797g BPD = 36weeks 1day OFD = 35weeks 3days HC = 35weeks 3days AC = 36weeks 3days FL = 35weeks 1day Growth Percentile= 95% Heart Rate = 167bpm Cerebellum = Humerus = HC/AC is 0.97 CI is 0.81 FL/BPD is 0.76 FL/AC is 0.21 IMPRESSION: Live IUP in cephalic presentation with an average ultrasound age of 35 weeks 6 days. Estimated weight is 2797 g which is 95th percentile indicating large for gestational age. Biophysical profile 8 of 8. Amniotic fluid index 20 cm Dictated by: Mg Vigil MD 08/10/2020 11:19 Mg Vigil MD in [place] 08/10/2020 11:19
== END ==
PROVIDERS: PCP General Practice; Visit Provider Nurse Practitioner Obstetrics & Gynecology
DX: O36.60X0 Maternal care for excessive fetal growth, unspecified trimester, not applicable or unspecified (principal)
CPT/HCPCS: 76816; 76819

== ENCOUNTER → 2020-08-20 08:35 | Outpatient (CLI) | payer MEDICAID, SELFPAY | PROVIDERS: Visit Provider Nurse Practitioner Obstetrics & Gynecology | DX: Z34.90 Encounter for supervision of normal pregnancy, unspecified, unspecified trimester (principal) | CPT/HCPCS: 86403 ==

== ENCOUNTER 2020-08-27 19:46 | Inpatient (IN) | payer MEDICAID, SELFPAY ==
[2020-08-27] VITALS (29 sets, daily range): BP systolic 108–197; BP diastolic 69–111; PULSE 67–98; RESP 22; TEMP 36.8; O2SAT 97; BMI 44.1; BMI 44.3
--- NOTE | 2020-08-27 15:31 | US_ITS ---
PROCEDURE: US OB BPP W/FET-MAT S/D CLINICAL INDICATION: Large for dates, observation Hypertension COMPARISON: US US OB FOLLOW UP from 08/10/2020 FINDINGS: There is a single live fetus which is in cephalic presentation. heart and body motion noted. Placenta is anterior and grade 1. The cervix is closed measuring 3 cm. SD ratio of the umbilical artery is 2.1 with a resistive index of 0.52 both within normal limits. Biophysical profile is 8 of 8. ELENI 21 cm. Measurements: Average ultrasound age 37weeks. Gestational Age 36weeks 1day Estimated due date by ultrasound age 0709/17/2020. Estimated weight 3,132g BPD = 37weeks 1day OFD = 37weeks 5days HC = 36weeks 4days AC = 37weeks 4days FL = 36weeks 5days Growth Percentile= 79Percent% Heart Rate = 144bpm Cerebellum = Humerus = HC/AC is 0.96 CI is 0.81 FL/BPD is 0.78 FL/AC is 0.21 IMPRESSION: Live IUP at 37 weeks 0 days in cephalic presentation. BPP 8/8 ELENI equals 21 cm SD ratio and resistive index within normal limits Estimated weight 3132 g which is 79th percentile Dictated by: Mg Vigil MD 08/28/2020 08:15 Mg Vigil MD in [place] 08/28/2020 08:15
[2020-08-27 15:39] LABS: Microscopic, Urine URINE MICROSCOPIC (MICROSCOPIC)
[2020-08-27 15:51] LABS: Appearance,Urine CLEAR (Clear); Bilirubin,Urine Negative (Negative); Blood, Urine 1+ (Negative); Color,Urine YELLOW (Yellow); Glucose,Urine (UA) Negative (Negative); Ketones,Urine TRACE (Negative); Leukocyte Esterase,Urine 1+ (Negative); Nitrate,Urine Negative (Negative); PH,Urine 6.5 (5.0-8.5); Protein,Urine 1+ (Negative); Specific Gravity, Urine 1.025 (1.005-1.030); Urobilinogen,Urine 0.2 EU/dl (0.2)
[2020-08-27 15:59] LABS: Amphetamine/Metha Screen,Urine Negative ng/ml (<1000); Benzodiazepines Screen,Urine Negative ng/ml (<200)
[2020-08-27 16:00] LABS: Barbiturates Screen,Urine Negative ng/ml (<200)
[2020-08-27 16:01] LABS: Cannabinoid Screen,Urine Negative ng/ml (<50); Methadone Screen,Urine Negative ng/ml (<300)
[2020-08-27 16:02] LABS: Cocaine Screen,Urine Negative ng/ml (<300); Opiate Screen,Urine Negative ng/ml (<300)
[2020-08-27 16:03] LABS: Phencyclidine Screen,Urine Negative ng/ml (<25)
[2020-08-27 16:13] LABS: Bacteria,Urine 1+ /lpf
[2020-08-27 16:28] LABS: Basophils % 0.2 % (0.1-2.0); Eosinophils # 0.1 K/mm3 (0.0-0.4); Eosinophils % 0.7 % (0.1-12.0); Hematocrit 35.5 % (37.0-47.0); Hemoglobin 11.5 g/dL (12.2-16.2); Lymphocytes # 1.5 K/mm3 (0.7-4.5); Lymphocytes % 16.6 % (10-50); Mean Corpuscular HGB Conc 32.5 g/dL (31.8-35.4); Mean Corpuscular Hemoglobin 26.7 pg (27.0-31.2); Mean Corpuscular Volume 82.2 fl (81-99); Mean Platelet Volume 7.8 fl (7.4-10.4); Monocytes # 0.4 K/mm3 (0.1-1.0); Monocytes % 4.4 % (1.7-9.3); Neutrophils # 6.9 K/mm3 (1.8-7.8); Neutrophils % 78.1 % (37.0-80.0); Platelet Count 245 K/mm3 (142-424); Red Blood Count 4.32 M/mm3 (4.20-5.40); Red Cell Distribution Width 14.8 % (11.5-17.5); White Blood Count 8.8 K/mm3 (4.8-10.8)
[2020-08-27 16:35] LABS: Activated Partial Thrombo Time 24.5 seconds (22.8-30.6); Prothrombin Time 10.2 seconds (10.1-12.5)
[2020-08-27 16:39] LABS: D-Dimer 1.03 ug/mL (0.0-0.5)
[2020-08-27 16:44] LABS: INR 0.85 (0.9-1.1)
[2020-08-27 17:01] LABS: Alanine Aminotransferase 14 U/L (12-78); Anion Gap 10.3 mEq/L (5-15); Aspartate Amino Transferase 22 U/L (14-36); Blood Urea Nitrogen 7 mg/dl (7-17); Calcium 8.5 mg/dl (8.4-10.2); Carbon Dioxide 27 mmol/L (22.0-30.0); Chloride 105 mmol/L (98-107); Creatinine Clearance Estimated 124 mL/min (50-200); Estimated Glomerular Filt Rate 114 ml/min (>60); GFR (African American) 138 ML/MIN (>60); Glucose 89 mg/dl (74-100); Potassium 4.3 mmoL/L (3.5-5.1); Sodium 138 mmol/L (136-145); Uric Acid 5.9 mg/dl (2.5-6.2)
[2020-08-27 17:38] LABS: Fibrinogen 513 mg/dL (229.9-363.5)
[2020-08-27 21:21] LABS: Coronavirus 19, PCR Not Detected (NotDetected); Influenza A, PCR Not Detected (NotDetected); Influenza B, PCR Not Detected (NotDetected)
[2020-08-27 22:47] LABS: Magnesium 1.8 mg/dl (1.6-2.3)
[2020-08-28] VITALS (30 sets, daily range): BP systolic 110–153; BP diastolic 68–105; PULSE 63–97; RESP 16–20; TEMP 36.4–36.6; O2SAT 94–96
--- NOTE | 2020-08-28 07:35 | HMH.PHAINT ---
MEDICATION RECONCILIATION COMPLETED ON PATIENT USING EXTERNAL FILL HISTORY FROM PHARMACY. -HUNG DONG, RONAD
--- NOTE | 2020-08-28 08:22 | HMH.ACPN2 ---
Internal Medicine - PN: Subj *Date: 08/28/20 *Time: 08:23 Interval history: Her blood pressure spiked last night and as result of that we started her on IV magnesium sulfate. Her blood pressure was as high as 184/110. We was observed overnight and her blood pressures have somewhat stabilized. We have started her on IV oxytocin this morning and she was 2 cm station -3 I ruptured her membranes and shortly thereafter she had a large gush of blood stained fluid. I suspect she has a small abruption. Heart tones were normal after applying a scalp clip. As result of the small abruption we will go to take her for a emergency lower segment transverse section. Exam Vital signs and Labs for Last 24 Hours: Temp Pulse Resp BP Pulse Ox 98.2 F 78 22 119/78 97 08/27/20 16:37 08/28/20 05:44 08/27/20 16:37 08/28/20 05:44 08/27/20 16:37 Laboratory Results - last 24 hr 08/27/20 15:32: Urine Color Yellow, Urine Appearance Clear, Urine pH 6.5, Ur Specific [place] 1.025, Urine Protein 1+, Urine Glucose (UA) Negative, Urine Ketones Trace, Urine Blood 1+, Urine Nitrate Negative, Urine Bilirubin Negative, Urine Urobilinogen 0.2, Ur Leukocyte Esterase 1+ A, Urine RBC 5-10, Urine WBC 5-10, Ur Squamous Epith Cells 3-5, Urine Bacteria 1+ 08/27/20 15:32: Urine Opiates Screen Negative, Urine Methadone Screen Negative, Ur Barbituates Screen Negative, Ur Phencyclidine Scrn Negative, Ur Amphetamines Screen Negative, U Benzodiazepines Scrn Negative, Urine Cocaine Screen Negative, U Marijuana (THC) Screen Negative 08/27/20 16:07: WBC 8.8, RBC 4.32, Hgb 11.5 L, Hct 35.5 L, MCV 82.2, MCH 26.7 L, MCHC 32.5, RDW 14.8, Plt Count 245, MPV 7.8, Neut % (Auto) 78.1, Lymph % (Auto) 16.6, Reeves % (Auto) 4.4, Eos % (Auto) 0.7, Baso % (Auto) 0.2, Neut # (Auto) 6.9, Lymph # (Auto) 1.5, Reeves # (Auto) 0.4, Eos # (Auto) 0.1, Baso # (Auto) 0.0 08/27/20 16:07: PT 10.2, INR 0.85 L, APTT 24.5, Fibrinogen 513 H 08/27/20 16:07: D-Dimer 1.03 H, Sodium 138, Potassium 4.3, Chloride 105, Carbon Dioxide 27, Anion Gap 10.3, BUN 7, Creatinine 0.60, Estimated Creat Clear 124, Estimated GFR 114, Est GFR ( Amer) 138, Glucose 89, Uric Acid 5.9, Calcium 8.5, AST 22, ALT 14 08/27/20 16:07: Magnesium 1.8 08/27/20 21:15: SARS-CoV-2 (PCR) Not detected, Influenza A Untype (PCR) Not detected, Influenza Type B (PCR) Not detected 08/27/20 22:58: Blood Type A Negative, Antibody Screen Negative I & O for Last 24 hours: Intake & Output 08/25/20 08/26/20 08/27/20 08/28/20 11:59 11:59 11:59 11:59 Weight 282 lb 3.984 oz Microbiology Reports for the Last 24 Hours: Microbiology 08/27/20 15:32 Urine,Clean Catch Urine Culture - Preliminary - Constitutional no acute distress - *Routine HEENT Exam Head: Present: normocephalic Eye: Present: EOMI, PERRL ENT: Present: mucous membranes moist Assessment and Plan (1) induced hypertension, antepartum Status: Acute Category: Medical Code(s): O13.9 - Gestational [-induced] hypertension without significant proteinuria, unspecified trimester (2) History of induced hypertension Status: Acute Category: Medical Code(s): Z87.59 - Personal history of other complications of , childbirth and the puerperium (3) Obesity affecting in third trimester, antepartum Status: Acute Category: Medical Code(s): O99.213 - Obesity complicating , third trimester (4) Placenta abruption, delivered, current hospitalization Status: Acute Category: Medical Code(s): O45.90 - Premature separation of placenta, unspecified, unspecified trimester - Assessment and plan all Dx Assessment and Plan for all problems:: We will plan to go ahead with a primary lower segment transverse section. We will do it under general anesthesia. The risks and benefits of surgery discussed the patient prior to surgery
--- NOTE | 2020-08-28 08:26 | HMH.OBAPHP ---
OB - H&P: HPI Antepartum - History of Present Illness Chief complaint: -induced hypertension, History of present illness: She is a 34-year-old obese 3 para 2 lady who has a history of -induced hypertension. She was admitted for increased blood pressure. Her blood pressures have spiked to 184/110. She has been started on magnesium sulfate. - History of Present Criteria for establishing EDC:: LMP confirmed by 1st trimester US care: good care Ultrasounds: normal 1st trimester US, normal mid trimester US Obstetrical complications: preeclampsia, gestational hypertension Medical complications: other [facility] History I have reviewed the patient's past medical history: Yes *Have you ever received a pneumonia vaccine?: No *Have you received a flu vaccine this season?: Yes Laterality Cases: Bilateral: Tonsillectomy Other Surgeries: Yes: Other. No: Amputation: No Fractures: No - *Social History Smoking Status: Never smoker Alcohol Intake: never Alcohol Intake Frequency:: other Substance Use Type: denies use *Occupational Status:: unemployed *Travel in the last 8 weeks: None Family Hx:: No significant family history Para: 2 Review of Systems - Review of Systems Review of systems:: pertinent systems reviewed and negative unless documented below Meds Home Medications Medication Instructions Recorded Confirmed Type aspirin 81 mg tablet,delayed 81 mg PO DAILY 03/14/20 08/27/20 History release sertraline 50 mg tablet 50 mg PO DAILY 03/14/20 08/27/20 History vits no.130-ferrous fum 1 tab PO DAILY tab 06/06/20 08/27/20 History 27 mg iron-folic acid 800 mcg tablet RX: Ferrous Sulfate 325 mg PO DAILY 08/27/20 08/27/20 History RX: Labetalol HCl 200 mg PO BID 08/27/20 08/27/20 History NIFEdipine [NIFEdipine 10mg 10 mg PO QID 08/28/20 08/28/20 History Capsule] Allergies Allergy/AdvReac Type Severity Reaction Status Date / Time Cephalosporins Allergy Verified 08/27/20 14:46 ciprofloxacin [From Cipro] Allergy Verified 08/27/20 14:46 OB - H&P: Exam - Physical Exam Vital signs: Temp Pulse Resp BP Pulse Ox 98.2 F 78 22 119/78 97 08/27/20 16:37 08/28/20 05:44 08/27/20 16:37 08/28/20 05:44 08/27/20 16:37 - Constitutional no acute distress - Routine HEENT Exam Head: Present: normocephalic Eye: Present: EOMI, PERRL ENT: Present: mucous membranes moist - Routine Neck Exam Present: supple, full ROM - Routine Respiratory Exam Absent: accessory muscle use (good air entry bilaterally), respiratory distress, wheezes, crackles - Routine Cardiovascular Exam Present: RRR. Absent: murmur - Routine Abdominal Exam Present: soft, normoactive bowel sounds. Absent: tenderness, distended, guarding - Routine Rectal Exam Patient deferred: visual exam, digital exam - Routine Exam Patient deferred: external exam, groin exam, perineal exam - Routine Extremities Exam Present: full ROM. Absent: cyanosis, edema - Routine Skin Exam Present: intact. Absent: cyanosis - Routine Neurological Exam Present: alert, oriented X3 - Routine Psychiatric Exam Present: normal affect OB - Results - Labs Labs: Short CBC 08/27/20 Range/Units 16:07 WBC 8.8 (4.8-10.8) K/mm3 Hgb 11.5 L (12.2-16.2) g/dL Hct 35.5 L (37.0-47.0) % Plt Count 245 (142-424) K/mm3 BMP 08/27/20 16:07 Sodium 138 Potassium 4.3 Chloride 105 Carbon Dioxide 27 BUN 7 Creatinine 0.60 Glucose 89 Calcium 8.5 Liver Function 08/27/20 Range/Units 16:07 AST 22 (14-36) U/L ALT 14 (12-78) U/L Urine 08/27/20 Range/Units 15:32 Urine Color Yellow (Yellow) Urine Appearance Clear (Clear) Urine pH 6.5 (5.0-8.5) Ur Specific [place] 1.025 (1.005-1.030) Urine Protein 1+ (Negative) Urine Glucose (UA) Negative (Negative) OB - A/P Antepartum (1) induced hyperte
[2020-08-28 08:46] LABS: Cord Blood PH 7.29 (7.35-7.45)
--- NOTE | 2020-08-28 09:54 | HMH.ANESCL ---
[facility] Anesthesia Checklist - Patient Identification Patient Identification: Arm Band - Structural Data Admitted From: Inpatient Planned Operative Procedure/s: Emergent Primary C/S Consent for Planned Operative Procedure(s) Verified: Yes Verified Documents: Surgical Consent, History and Physical - NPO Status Verified Time NPO: 00:00 - Additional verifications Anesthesia Reactions: No - Airway Assessment C-Spine Mobility Assessed: Yes (mp2) TMJ Mobility Assessed: Yes Dentition: Good Dentition - Neurological Assessment Level of Consciousness: Awake, Alert - Anesthesia Plan Anesthesia Risk discussed: Yes Anesthesia Plan: Verified ASA Class: II (E) Anesthesia Type: General w/block (U/S guided TAP block) [facility] History I have reviewed the patient's past medical history: Yes *Have you ever received a pneumonia vaccine?: No *Have you received a flu vaccine this season?: Yes Anesthesia experience/problems:: nac Laterality Cases: Bilateral: Tonsillectomy Other Surgeries: Yes: Other. No: Amputation: No Fractures: No - *Social History Smoking Status: Never smoker Alcohol Intake: never Alcohol Intake Frequency:: other Substance Use Type: denies use *Occupational Status:: unemployed *Travel in the last 8 weeks: None Family Hx:: No significant family history Para: 2
--- NOTE | 2020-08-28 09:55 | P.PN_ITS ---
[facility] Anesthesia Record Part I Intake, IV Amount: 1,300 Estimated blood loss (mL): 900 Urine output (mL): 500 Blood Pressure: 153/105 SaO2: 94 Pulse Rate: 87 Respiratory Rate: 16 Temperature: 97.7 F Patient is:: Drowsy, Stable Stable to PACU at:: 09:40
--- NOTE | 2020-08-28 10:18 | HMH.OPNOTE ---
Date of procedure: 08/28/20 Pre-op Diagnosis:: -induced hypertension, obesity, placental abruption Post-op Diagnosis:: -induced hypertension, obesity, placental abruption Procedure performed:: Primary lower segment transverse section Surgeon:: Steve Oviedo MD [employer] Instructor(s):: Keila Mcdonnell STAFF PSYCHOLOGIST:: Lucho Christian Anesthesia: GETA Estimated blood loss (mL): 1,300 Clinical Note:: She is a 34-year-old 3 para 2 who has had 2 episodes of induced hypertension in her previous pregnancies. She was 36 weeks gestational age. She has been on aspirin and labetalol but says she has not been taking the labetalol because it made her feel lightheaded. She came in last night and was admitted with slightly increased blood pressure. She was also having a few contractions. She subsequently increased her blood pressure to 180/110. She was started on magnesium sulfate. This morning she was started on IV oxytocin and shortly after I ruptured her membranes she had a large gush of blood possibly consistent with a small abruption. The amniotic fluid was also bloodstained. As result of that we elected to take her for an emergency section for suspected abruption. The risks and benefits of surgery were discussed with the patient prior to surgery. Operative findings:: She delivered a liveborn male child at 8:42 AM on the morning of August 28, 2020. The baby had Apgars of 7 at 1 minute 9 at 5 minutes and 9 at 10 minutes. pH was 7.29. She appeared to have a small 10% abruption on the placenta. There was a small amount of clot there. The ovaries and tubes otherwise appeared normal. Operative note:: She was taken to the operating room where general anesthesia was found be adequate. She was prepped and draped in normal sterile fashion in the supine position with a leftward tilt. A Bhat catheter was in the bladder. A Pfannenstiel skin incision was made with knife then carried through to the underlying layer of fascia with knife. The fascia was opened in the midline with knife and extended laterally using Blankenship scissors. Ilan clamps were applied to the superior aspect of the fascial incision which was tented up and the underlying rectus muscles dissected off using Blankenship scissors. The Atkins clamps were then applied to the inferior aspect of the fascial incision which in a similar fashion was tented up and the underlying rectus muscles dissected off using Blankenship scissors. The rectus muscles were then in the midline, the peritoneum identified, and entered sharply with Metzenbaum scissors. This incision was then extended superiorly and inferiorly with Blankenship scissors. We had good visualization of the bladder inferiorly. The bladder peritoneum was then opened in the midline and extended laterally using Blankenship scissors. A bladder flap was created digitally. We then inserted an Tay retractor. Transverse incision was made through the uterine muscle to the amnion. This incision was then extended laterally using fingers traction. The amnion was entered sharply with knife. There was clear amniotic fluid. The 's head was then delivered atraumatically. This was followed by the anterior shoulder and the rest of the 's body atraumatically. The oropharynx and nasopharynx were bulb suctioned. The was then handed off to Dr. Vaughn who assigned Apgars of 7 at 1 minute and 9 at 5 minutes and 9 at 10 minutes. We then obtained cord blood as well as cord pH. The pH was 7.29. Using gentle traction on the cord and countertraction on the fundus I was able to easily deliver the placenta intact. It had a normal three-vessel cord. The uterus was then cleared of clots and debris . The placenta appeared to have a small abruption. The uterine incision was then closed using running 0 Vicryl suture in a locked fashion. There was a small blood vessel bleeding in the left lower aspect of the incision and I used [id number] sutur
--- NOTE | 2020-08-28 14:19 | SUR.OPER ---
0900-Post hemorrhage protocol initiated at this time in operating room- #[id number] iv started to left AC, notified of QBL at this time, MD ordered for pt to have hemabate ( administered per BEAN VINER), and two units PRBC's type and crossmatched, will continue to monitor and montior closely in pacu.
--- NOTE | 2020-08-28 15:40 | HMH.PHAVTE ---
[facility] Pharmacy VTE Monitoring - Patient Demographics Admission date: 08/28/20 Report Date: 08/28/20 Time: 15:40 Allergies/Adverse Reactions: Patient Allergies Cephalosporins Allergy (Severe, Verified 08/28/20 11:41) Anaphylaxis ciprofloxacin [From Cipro] Allergy (Severe, Verified 08/28/20 11:41) Anaphylaxis Height: 1.7 m Weight: 128.026 kg Patient Problems: Current Active Problems induced hypertension, antepartum (Acute) History of induced hypertension (Acute) Obesity affecting in third trimester, antepartum (Acute) Placenta abruption, delivered, current hospitalization (Acute) - VTE Risk Labs: VTE Related Lab Results Hgb 11.5 g/dL (12.2-16.2) L 08/27/20 16:07 Hct 35.5 % (37.0-47.0) L 08/27/20 16:07 Plt Count 245 K/mm3 (142-424) 08/27/20 16:07 PT 10.2 seconds (10.1-12.5) 08/27/20 16:07 INR 0.85 (0.9-1.1) L 08/27/20 16:07 APTT 24.5 seconds (22.8-30.6) 08/27/20 16:07 Fibrinogen 513 mg/dL (229.9-363.5) H 08/27/20 16:07 BUN 7 mg/dl (7-17) 08/27/20 16:07 Creatinine 0.60 mg/dl (0.52-1.04) 08/27/20 16:07 Estimated Creat Clear 124 mL/min (50-200) 08/27/20 16:07 - Prophylaxis VTE Prophylaxis Ordered?: Yes Types of VTE Prophylaxis: IPCS Thigh High Location of Applied Device: Bilateral Lower Extremeties
[2020-08-28 16:29] LABS: Hematocrit 32.5 % (37.0-47.0); Hemoglobin 10.8 g/dL (12.2-16.2)
[2020-08-28 17:47] LABS: OB Protein,Urine (DIP) Negative (Negative)
[2020-08-28 23:51] LABS: Magnesium 5.4 mg/dl (1.6-2.3)
[2020-08-29 00:43] VITALS: BP 157/87; PULSE 75
[2020-08-29 01:31] VITALS: BP 134/82; PULSE 65
[2020-08-29 02:00] VITALS: BP 137/89; PULSE 69
[2020-08-29 07:43] LABS: Hematocrit 28.1 % (37.0-47.0); Magnesium 5.5 mg/dl (1.6-2.3)
--- NOTE | 2020-08-29 10:56 | SW/DCPLANNER ---
I received a referral regarding: positive for opiates x2 while in triage. Patient was positive for opiates on 08/07/20 and 08/09/20. Patient stated that in the past prior to she was prescribed Tylenol 3. Patient stated that she was recently having back pain and decided to take leftover Tylenol 3 not knowing it was an opiate. Patient discovered she was positive during routine doctors visit with Dr Oviedo. Dr Oviedo informed patients to stop taking this medication. Patient stated that she took two of the Tylenol [address] Oviedo advising her to not take anymore. Infants urine drug screen was negative at admission. I spoke with patient this morning in room while infants father (Jeff Beaulieu 05/03/92) was present. Patient stated that male (Marcelino Beaulieu) was born yesterday 08/[birth year]/20. Patient, Jeff, , Jeff mother (Siomara Beaulieu) and patients daughter: Mile Guerra 08/13/04 will reside at [address] [place] [address] in [place] [address]. Patients contact number is [phone]. Patient does have another son (Isak Rae 07/01/11) that she shares custody with his father. Patient stated that she has had one past Social Service involvement: regarding son burning hand with fireworks/ case was not opened. Patient stated that she is already established with WIC and has everything she needs at home including: crib,carseat, clothing, diapers, and will be bottle feeding. Patients nurse (Maggie) stated that patient/father are both appropriate with infant. Patient is set to discharge home on Thursday. No further needs/plans at this time.
--- NOTE | 2020-08-29 11:01 | HMH.ANESII ---
[facility] Anesthesia Record Part II Discharge Time: 10:15 Destination: Obstetric PACU nurse assessment reviewed?: Yes Patient Condition:: Good Anesthesia Complications:: None Swallowing reflex intact?: Yes Cyanosis?: No Blood Pressure: 152/95 Pulse Rate: 97 Temperature: 97.5 F Mental Status: Alert & Oriented Pain level:: 0 Nausea and/or vomitting:: None Intake, IV Amount: 0
[2020-08-29 11:02] VITALS: BP 152/95; PULSE 97; TEMP 36.4
--- NOTE | 2020-08-29 14:37 | P.PN_ITS ---
Internal Medicine - PN: Subj *Date: 08/29/20 *Time: 14:37 Interval history: She is doing very well today. Her pain is well controlled. Her blood pressure has stabilized. She has been taking magnesium sulfate and we will stop it at 9:00 this morning. We will go ahead and start labetalol 200 mg twice daily as well. Her blood counts are normal. Exam Vital signs and Labs for Last 24 Hours: Temp Pulse Resp BP Pulse Ox 97.5 F L 97 H 18 152/95 H 95 08/29/20 11:02 08/29/20 11:02 08/28/20 19:39 08/29/20 11:02 08/28/20 10:15 Laboratory Results - last 24 hr 08/28/20 04:45: Urine Protein Negative 08/28/20 16:07: Hgb 10.8 L, Hct 32.5 L 08/28/20 23:25: Magnesium 5.4 H D 08/29/20 06:10: Hgb 9.0 L D, Hct 28.1 L 08/29/20 06:10: Screen Negative, Baby's Rh Status Unknown, Rhogam Infusion Rhogam release 08/29/20 06:10: Magnesium 5.5 H I & O for Last 24 hours: Intake & Output 08/27/20 08/28/20 08/29/20 08/30/20 11:59 11:59 11:59 11:59 Intake Total 1300 / 1300 0 / 0 Balance 1300 / 1300 0 / 0 Weight 282 lb 3.984 oz Microbiology Reports for the Last 24 Hours: Microbiology 08/27/20 15:32 Urine,Clean Catch Urine Culture - Final Multiple organisms, suggests contamination. - Constitutional no acute distress - *Routine HEENT Exam Head: Present: normocephalic Eye: Present: EOMI, PERRL ENT: Present: mucous membranes moist Assessment and Plan (1) induced hypertension, antepartum Status: Acute Category: Medical Code(s): O13.9 - Gestational [- induced] hypertension without significant proteinuria, unspecified trimester (2) History of induced hypertension Status: Acute Category: Medical Code(s): Z87.59 - Personal history of other complications of , childbirth and the puerperium (3) Obesity affecting in third trimester, antepartum Status: Acute Category: Medical Code(s): O99.213 - Obesity complicating , third trimester (4) Placenta abruption, delivered, current hospitalization Status: Acute Category: Medical Code(s): O45.90 - Premature separation of placenta, unspecified, unspecified trimester - Assessment and plan all Dx Assessment and Plan for all problems:: She is stabilized today. Her hemoglobin has dropped somewhat but is still in the normal range. She has normal blood pressure and we are stopping her magnesium sulfate. We will start labetalol 200 mg twice daily.
[2020-08-29 20:30] VITALS: BP 126/81; PULSE 81; RESP 17; TEMP 36.7; O2SAT 99
[2020-08-29 23:50] VITALS: BP 110/70; PULSE 68; RESP 18; TEMP 36.6; O2SAT 98
--- NOTE | 2020-08-30 09:11 | P.PN_ITS ---
Internal Medicine - PN: Subj *Date: 08/30/20 *Time: 09:12 Interval history: She is doing very well this morning. Her blood pressure has completely normalized on the labetalol 200 mg twice daily. Her pain is well controlled with the T AP block. She is bottlefeeding. Exam Vital signs and Labs for Last 24 Hours: Temp Pulse Resp BP Pulse Ox 97.9 F 68 18 110/70 98 08/29/20 23:50 08/29/20 23:50 08/29/20 23:50 08/29/20 23:50 08/29/20 23:50 Laboratory Results - last 24 hr 08/29/20 06:10: Screen Negative, Baby's Rh Status Unknown, Rhogam Infusion Rhogam release I & O for Last 24 hours: Intake & Output 08/27/20 08/28/20 08/29/20 08/30/20 11:59 11:59 11:59 11:59 Intake Total 1300 / 1300 0 / 0 Balance 1300 / 1300 0 / 0 Weight 282 lb 3.984 oz Microbiology Reports for the Last 24 Hours: Microbiology 08/27/20 15:32 Urine,Clean Catch Urine Culture - Final Multiple organisms, suggests contamination. - Constitutional no acute distress - *Routine HEENT Exam Head: Present: normocephalic Eye: Present: EOMI, PERRL ENT: Present: mucous membranes moist Assessment and Plan (1) induced hypertension, antepartum Status: Acute Category: Medical Code(s): O13.9 - Gestational [- induced] hypertension without significant proteinuria, unspecified trimester (2) History of induced hypertension Status: Acute Category: Medical Code(s): Z87.59 - Personal history of other complications of , childbirth and the puerperium (3) Obesity affecting in third trimester, antepartum Status: Acute Category: Medical Code(s): O99.213 - Obesity complicating , third trimester (4) Placenta abruption, delivered, current hospitalization Status: Acute Category: Medical Code(s): O45.90 - Premature separation of placenta, unspecified, unspecified trimester (5) delivery delivered Status: Acute Category: Medical Code(s): O82 - Encounter for delivery without indication - Assessment and plan all Dx Assessment and Plan for all problems:: She is doing very well 48 hours post surgery. She is off her magnesium sulfate. She is taking labetalol 200 mg twice daily and her blood pressures have completely normalized. If she continues to do well we will plan to send her home tomorrow. The baby is doing well.
[2020-08-30 20:30] VITALS: BP 176/83; PULSE 83; RESP 18; TEMP 36.9; O2SAT 98
[2020-08-31 00:11] VITALS: BP 129/59; PULSE 87; RESP 18; TEMP 36.4; O2SAT 98
[2020-08-31 03:41] VITALS: BP 141/90; PULSE 89; RESP 18; TEMP 36.6; O2SAT 100
--- NOTE | 2020-08-31 09:36 | HMH.OBDCSM ---
General - General Admission date:: 08/27/20 Discharge date: 08/31/20 HPI - History of Present Illness History of present illness: She is a 34-year-old 3 para 2 who was 36 and 2 weeks gestational age. She came into labor and delivery and her blood pressure was quite elevated. It was 180/104. As result of that we elected to induce her labor. Hospital Course Hospital Course: She was started on magnesium sulfate and then this settled her blood pressure. We started her on IV oxytocin. Shortly after I ruptured her membranes she had a large gush of blood and blood-tinged amniotic fluid. We suspected a small abruption and as result of that we decided to take her for an emergency section. Under general anesthesia she delivered a liveborn male child at 8:42 AM on the morning of August 28, 2020. The baby weighed 7 pounds 7 ounces and was 19-1/2 inches long. He had Apgars of 7 at 1 minute 9 at 5 minutes and 9 at 10 minutes. She has done well postoperatively and has remained afebrile throughout her hospitalization. we stopped her magnesium sulfate and started her on labetalol 200 mg twice daily and her blood pressure is stable. She is eating and drinking and ambulating. She is bottlefeeding. Her lochia is normal. Her nuclear reactor engineer is Dr. Vaughn. She has a Rh- blood and has received RhoGam. She is rubella immune and group B streptococcus negative. She will be discharged home to follow-up with me in approximately 2 weeks time. She will continue with her vitamins and iron. She was started on labetalol 200 mg twice daily and she will continue with this at home. She was given a prescription for Percocet 5/325 number 20 tablets. She will take ibuprofen as well. We have given her prescription for this. She was given the usual instructions with respect to limiting her activity, driving and sexual activity. Her condition on discharge is stable and improved. Rhogam Administration: Given Objective Vital signs: Temp Pulse Resp BP Pulse Ox 97.8 F 89 18 141/90 H 100 08/31/20 03:41 08/31/20 03:41 08/31/20 03:41 08/31/20 03:41 08/31/20 03:41 no acute distress - *Routine HEENT Exam Head: Present: normocephalic Eye: Present: EOMI, PERRL ENT: Present: mucous membranes moist Results Labs on day of discharge: Labs from last 24 hours 08/27/20 22:58 Crossmatch ([facility]) See Detail DS: Diagnosis - Discharge Diagnosis (1) induced hypertension, antepartum Status: Acute (2) History of induced hypertension Status: Acute (3) Obesity affecting in third trimester, antepartum Status: Acute (4) Placenta abruption, delivered, current hospitalization Status: Acute (5) delivery delivered Status: Acute Discharge Plan - Patient Discharge Instructions ACTIVITY: No heavy lifting DIET: continue same diet - Follow up Plan Disposition: Home, Self-Care Condition at discharge:: Stable Home Medications: Home Medications Medication Instructions Recorded Confirmed Type aspirin 81 mg tablet,delayed 81 mg PO DAILY 03/14/20 08/27/20 History release sertraline 50 mg tablet 50 mg PO DAILY 03/14/20 08/27/20 History vits no.130-ferrous fum 1 tab PO DAILY tab 06/06/20 08/27/20 History 27 mg iron-folic acid 800 mcg tablet Ferrous Sulfate 325 mg PO DAILY 08/27/20 08/27/20 History NIFEdipine [NIFEdipine 10mg 10 mg PO QID 08/28/20 08/28/20 History Capsule] Ibuprofen [Motrin 400mg 400 mg PO Q4HP PRN #40 tab 08/31/20 Rx tablet] Labetalol HCl 200 mg PO BID #60 tab 08/31/20 Rx Oxycodone HCl/Acetaminophen 1 tab PO Q4-6H PRN #20 tab 08/31/20 Rx [Percocet 5/325mg tablet] Prescriptions/Medication Reconciliation: New Oxycodone HCl/Acetaminophen [Percocet 5/325mg tablet] 1 tab PO Q4-6H PRN #20 tab PRN Reason: Severe Pain Ibuprofen [Motrin 400mg tablet] 400 mg
== END 2020-08-31 14:00 | disposition home or self-care (01) | DRG 786 ==
LOC: OBOUT 19:47 → OB 19:48
PROVIDERS: Admitting Provider Nurse Practitioner Obstetrics & Gynecology; PCP General Practice; Visit Provider Nurse Practitioner Obstetrics & Gynecology
PROC: (CPT 59514; principal; 2020-08-28 08:20)
DX: O13.3 Gestational [pregnancy-induced] hypertension without significant proteinuria, third trimester (principal); O45.93 Premature separation of placenta, unspecified, third trimester; Z3A.36 36 weeks gestation of pregnancy; Z37.0 Single live birth; Z23 Encounter for immunization
CPT/HCPCS: 59514; 36415; 59025; 76811; 76819; 76820; 80048; 80305; 81001; 81002; 82800; 83735; 84450; 84460; 84550; 85014; 85018; 85025; 85378; 85384; 85461; 85610; 85730; 86850; 87086; 94761; C1758; G0283; J0131; J0330; J0595; J1956; J2405; J2790; U0003

== ENCOUNTER 2024-09-29 17:43 | Emergency (ER) | payer MEDICAID, SELFPAY ==
[2024-09-29 17:51] VITALS: BP 138/63; PULSE 63; RESP 16; TEMP 36.8; O2SAT 100; BMI 38.7
--- NOTE | 2024-09-29 17:57 | ED_ITS ---
<Statement entered by Shea Cr DO - 09/29/24 23:28> I was consulted by the DEVON, and we discussed the complexity of the problems being addressed. I approved the treatment and management plan for this patient's care in the emergency department, thus performing a substantive portion of the medical decision making. Shea Cr DO Discharge Plan Disposition Patient Disposition: Home, Self-Care Condition: Good Prescriptions Prescriptions: New sulfamethoxazole-trimethoprim [Bactrim DS] 800-160 mg tablet 1 tab PO BID 5 Days Qty: 10 0RF No Action sertraline 50 mg tablet 50 mg PO DAILY vit [id number] 27 mg iron- 800 mcg tablet 1 tab PO DAILY Patient Comments: TAKE ONE (1) TABLET(S) EVERY DAY BY ORAL ROUTE FOR 90 DAYS. ferrous sulfate 325 MG tablet 325 mg PO DAILY ibuprofen 400 MG tablet 400 mg PO Q4HP PRN (Reason: Moderate Pain) Qty: 40 0RF labetalol 200 MG tablet 200 mg PO BID Qty: 60 2RF Referrals Follow up/Referrals: Ernesto ([facility]),MATTI Stubbs [Primary Care Provider, Emergency Medicine] - See instructions Activity Restrictions/Add. Instructions Additional Instructions/Restrictions: Please return to the emergency department with any worsening signs or symptoms, please follow-up with your family doctor in the upcoming days/weeks, please take your medication as prescribed. Because of your documented anaphylactic reactions to the 2 first-line medications we would typically use for a plantar puncture foot wound, please be aware that you are using a second line medication and monitor for any signs or symptoms of infection to include fever chills drainage from the wound or any redness or swelling around your left foot area. Please return to the emergency department if you have these symptoms. Clinical Impressions Clinical Impression: Acute foreign body of left foot Instructions Patient Instructions: DI for Splinter Removal Print Language Print Language: Chinese Discharge ED Provider: Shea Cr General Adult HPI General Chief complaint: Skin/Abscess/Foreign Body Stated complaint: AO 09/29/24 1400 FB left foot Time Seen by Provider: 09/29/24 17:53 Mode of Arrival: Wheelchair Source of Information: Patient Description of Symptoms (Recalled from ER Triage Doc. by RN): Patient states about 1600 today she stepped on something and now has something stuck in the bottom of her left foot and is unable to get it out History of Present Illness HPI narrative: 38-year-old female presents the emergency department with a left foot injury/foreign body, patient states she was out by her pool today barefoot when she was walking and she stepped on something and now it is stuck in the bottom of my foot . She is unable to get it out. She denies any fever chills chest pain shortness of breath nausea vomiting constipation diarrhea, no abdominal pain no urinary symptomatology, patient is a current everyday smoker, denies any alcohol or drug use, other past medical history is consistent with anxiety/depression, and hypertension, patient denies any history of diabetes, initial triage vitals are grossly unremarkable. When asking the patient about tetanus prophylaxis patient is adamant and is quite certain she is up-to-date on her tetanus prophylaxis. Please note that above description of symptoms, in this electronic medical record under categorization of recalled from ER triage doctor by RN are reflective of an initial nursing assessment, however, is not reflective of my full history and physical exam that was personally taken and clarified. Consequentially, this preceding description of symptoms, which may include the patient's categorized chief complaint in the EMR, do not reflect my personal clinical impression, and the ultimate description of history of present illness and patient stated complaints should be deferred to this section of the note. Unless stated otherwise or congruent with this section of the note, additional signs, symptoms, or incongruence should be interpreted as inaccurate with my cli nical impression. Onset (ago): hour(s) Related Data Home Medications ?Medication ?Instructions ?Recorded ?Confirmed sertraline 50 mg tablet 50 mg PO DAILY Depression 09/25/20 vits no.130-ferrous fum 1 tab PO DAILY Supple ment 06/06/20 09/25/20 27 mg iron-folic acid 800 mcg tablet ferrous sulfate 325 mg (65 mg 325 mg PO DAILY Suppleme nt 08/27/20 09/25/20 iron) tablet Previous Rx's ?Medication ?Instructions ?Recorded ibuprofen 400 mg tablet 400 mg PO Q4HP PRN Moderate Pain 08/31/20 #40 tabs labetalol 200 mg tablet 200 mg PO BID Hypertension # 60 tabs 08/31/20 sulfamethoxazole 800 1 tab PO BID 5 days #10 tabs 09/29/24 mg-trimethoprim 160 mg tablet (Bactrim DS) Allergies Allergy/AdvReac Type Severity Reaction Status Date / Time Cephalosporins Allergy Severe Anaphylaxis Verified 09/25/20 11:34 ciprofloxacin (From Cipro) Allergy Severe Anaphylaxis Verified 09/25/20 11:34 [facility] Disclaimer: The information contained in this section may have been updated after the patient was seen, as this information can be updated by other users. Social History Smoking Status: Current every day smoker alcohol intake: never substance use type: denies use current occupational status: unemployed Travel in the last 8 weeks?: None Have you lived/traveled outside US in past 30 days?: No Contact w/someone who lives/traveled outside US past 30 days?: No Exposure to someone with infectious disease in past 14 days?: No Do you have a fever (greater than 100.4 F or 38 C)?: No Have you tested positive for COVID-19?: No Exposed to someone with COVID-19 in past 14 days?: No Do you have a sore throat?: No Do you have a cough?: No Do you have any weakness?: No Do you have any diarrhea?: No Are you experiencing any unusual bleeding?: No Do you have any muscle aches/pain?: No Do you have any abdominal pain?: No Are you experiencing loss of taste or smell?: No Other Medical History Have you received the Flu Vaccine for this season: No Have you received the Pneumonia Vaccine: No ROS Obtained: Yes All systems reviewed & no additional complaints except as documented Physical Exam General General appearance: alert and in no apparent distress Head Head exam: atraumatic and normocephalic Eye Eye exam: Present PERRL and EOMI ENT ENT exam: Present mucous membranes moist Neck Neck exam: Present normal inspection Chest Chest inspection: Present normal inspection and symmetric chest wall rise Respiratory Respiratory exam: Present normal lung sounds bilaterally; Absent respiratory distress Cardiovascular Cardiovascular exam: Present regular rate and normal rhythm Abdominal Exam Abdominal exam: Present soft; Absent tenderness Extremities Exam Extremities exam: Present normal inspection Neurological Exam Neurological exam: Present alert and oriented X3 Psychiatric Psychiatric exam: Present normal affect Skin Skin exam: Present warm, dry and other (There is obvious wooden foreign body embedded in the plantar aspect of the patient's left foot, otherwise neurovascular intact) Medical Decision Making Medical Records Medical records reviewed: Yes I reviewed the patient's medical records. Screening: Per USPSTF and CDC recommendations, given the prevalence of disease in our region, it is our hospital?s policy to screen for HIV and viral Hepatitis for all patients aged 18 and over and those with ongoing risk factors. Geoffrey Inquiry Pt receiving controlled substance: No Geoffrey was queried for this patient: No Vital Signs: 09/29/24 17:51 Temperature 98.2 F Temperature Source Oral Pulse Rate [Right Brachial] 63 Respiratory Rate 16 Blood Pressure [Right Arm] 138/63 Blood Pressure Mean [Right Arm] 88 Blood Pressure Source [Right Arm] Automatic Cuff Blood Pressure Position [Right Arm] Sitting 02 Sat by Pulse Oximetry 100 Oxygen Delivery Method Room Air Medical Decision Narrative: 38-year-old female presents to the emergency department with a left foot inju ry/foreign body, differential diagnose include but not limited to, cellulitis, foreign body of the foot, plantar puncture wound. Among others. I discussed this patient's case with the attending physician Dr. Cr See procedure note for full details, I was able to successfully remove the patient's wooden foreign body from the left plantar aspect of the patient's foot, tolerated procedure well, copious irrigation and cleansing of the area/wound was performed with normal saline and Hibiclens. No retained foreign bodies are appreciated upon my examination and palpation after the procedure. Patient is quite adamant that she is up-to-date on her tetanus prophylaxis, thus defer tetanus administration here today. Patient also has documented anaphylaxis allergies to cephalosporins and ciprofloxacin, unfortunately, these are first-line medications that would be used to cover the patient for any infection associated with plantar puncture wound, patient voiced understanding and aware we are going to have to use second line therapy, thus will give Bactrim DS p.o. twice daily for 5 days, patient was instructed to return to the emerged part any worsening signs or symptoms. Patient will follow with PCP in the upcoming days/weeks, take medication as prescribed. Patient voiced understanding and is fully aware to return to the emergency department with any worsening signs or symptoms that would be consistent with infection, she is also aware that we unfortunately are having to use a second line therapy for plantar puncture wound coverage as patient has documented anaphylaxis allergies to the first line agents. Procedures Foreign Body Removal Time Out Performed: No Site: left Description of foreign body: other (wood) Sedation/Analgesia: none Technique: removal with forceps and irrigation Confirmed by:: direct visualization and palpation Complications: none Post-procedure exam: awake, alert, normal BP and normal HR Neurovascular: normal distal pulse and normal capillary fill Critical Care Critical Care Time Critical Care Time: No
--- OUTSIDE RECORDS SUMMARY | 2024-09-29 18:06 | XMS_ITS | Encounter Summary ---
Author Organization Healthcare Address [address] [place] [address] Care Team Providers Care Fx Artist Name Role Phone Marlee Ramirez Primary Care Provider [phone] Encounter Details Date Type Department Care Team (Latest Contact Info) Description 03/25/2023 Community [facility] Community Practice [address] [place] [address] Caterina Whitlock MD [address] [place] [address] Supervision of elderly primigravida, first trimester (Primary Dx); Essential (primary) hypertension Social History Tobacco Use Types Packs/Day Years Used Date Smoking Tobacco: Never Alcohol Use Standard Drinks/Week Comments No 0 (1 standard drink = 0.6 oz pure alcohol) Alcoholic Drinks/day: Never Drank Alcohol Comments Yes Sex and Gender Information Value Date Recorded Sex Assigned at Female 11/12/2022 6:26 AM EDT Legal Sex Female 8:23 PM EDT Gender Identity Female 11/12/2022 6:26 AM EDT Sexual Orientation Don't know 11/12/2022 6: 26 AM EDT documented as of this encounter Plan of Treatment Not on file documented as of this encounter Visit Diagnoses Diagnosis Supervision of elderly primigravida, first trimester- Primary Essential (primary) hypertension Unspecified essential hypertension documented in this encounter Care Teams Fx Artist Relationship Specialty Start Date End Date Marlee Ramirez PA [facility] [address] [address] PCP - General 07/13/20 documented as of this encounter
--- OUTSIDE RECORDS SUMMARY | 2024-09-29 18:06 | XMS_ITS | Clinical Summary ---
Author Organization [facility] Address [address] [place] [address] Care Team Providers Care Geothermal Production Manager Name Role Phone Marlee Ramirez Primary Care Provider Allergies Active Allergy Reactions Criticality Noted Date Comments Cefazolin Anaphylaxis,Itching, Swe lling,Rash,Other - please document in the comment field High 01/15/2012 2 grams infused prior to surgery.....immediate high vent pressures, hypotesion, redness, bradycardia 04/06/22: reports has tolerated amoxicillin since that time Cephalosporins Hives,Swelling High 04/05/2023 Reaction to cefazolin Ciprofloxacin Hives,Rash Medium 12/28/2011 Medications aspirin 81 MG EC tablet Take 1 tablet (81 mg) by mouth 1 (one) time each day. Active MV-Min-Fe Fum-FA-DHA ( 1 PO) Take 1 tablet by mouth 1 (one) time each day. Active sertraline (Zoloft) 50 MG tablet Take 1 tablet (50 mg) by mouth 1 (one) time each day. Active ferrous sulfate 325 (65 Fe) MG tablet Take 1 tablet (325 mg) by mouth 1 (one) time each day with breakfast. Active acetaminophen (Tylenol) 500 MG tablet Take 1-2 tablets (500-1,000 mg) by mouth every 8 (eight) hours if needed for pain. Active labetalol (Normodyne) 300 MG tablet Take 1 tablet (300 mg) by mouth every 8 (eight) hours. 60 tablet 04/13/2023 Active Active Problems Problem Noted Date Diagnosed Date Obesity affecting in third trimester 0 04/06/2023 Chronic hypertension during 04/06/2023 Multigravida of advanced maternal age in third t rimester 04/06/2023 Maternal care for unspecifie d type scar from previous delivery 04/06/2023 labor without delivery, third trimester 04/05/2023 Family History Medical History Relation Name Comments Breast cancer Mother Relation Name Status Comments Mother Social History Tobacco Use Types Packs/Day Years Used Date Smoking Tobacco: Never Smokeless Tobacco: Never Tobacco Cessation:Counseling Given: Not Answered Alcohol Use Standard Drinks/Week Comments No 0 (1 standard drink = 0.6 oz pure alcohol) Alcoholic Drinks/day: Never Drank Alcohol CAGE ASSESSMENT Answer Date Recorded Cage unable to access Not on file 04/12/2023 Cage max number of drinks Not on file 2023 Cage Beverages a week Not on file 04/12/2023 Have you ever felt you should CUT down on your d rinking? 0 04/12/2023 Have you been ANNOYED by people criticizing your drinking? 0 04/12/2023 Have you felt GUILTY about your drinking? 0 04/12/2023 Have you had a drink first t barry in the morning (EYE-ENGAGEMENT LIAISON) to steady your nerves or to get rid of a hangover? 0 04/12/2023 CAGE Questionnaire Score 0 024 Comments No Sex and Gender Information Value Date Recorded Sex Assigned at Female 11/12/2022 6:26 AM EDT Legal Sex Female 8:23 PM EDT Gender Identity Female 11/12/2022 6:26 AM EDT Sexual Orientation Don't know 11/12/2022 6: 26 AM EDT Last Filed Vital Signs Vital Sign Reading Time Taken Comments Blood Pressure 119/72 04/13/2023 3:50 AM EST Pulse 81 04/13/2023 3:50 AM EST Temperature 37.1 C (98.8 F) 04/13/2023 3:49 AM EST Respiratory Rate 24 04/12/2023 10:4 5 PM EST Oxygen Saturation 98% 04/12/2023 2:1 4 PM EST Inhaled Oxygen Concentration - - Weight 133 kg (293 lb) 04/06/2023 4:00 PM EST patient stated Height 170.2 cm (5' 7 ) 04/06/2023 4:00 PM EST Body Mass Index 45.89 04/06/2023 4:00 PM EST Plan of Treatment Health Maintenance Due Date Last Done Comments [facility]-Depression Screening 1985 [facility]-HIV Screening 1985 [facility]-Hepatitis C Screening 1985 [facility]-Infant/Child/Adol SDOH Screenings 1985 [facility]-Varicella Vaccines (1 of 2 - 13+ 2-dose series) 1998 HPV Vaccines (1 - 3-dose series) 2000 [facility]- SDOH Screenings 11/09/2003 [facility]-Adult SDOH Screenings 11/09/2003 [facility]-Hepatitis B Vaccines (1 of 3 - 19+ 3-dose series) 2004 [facility]-Pap Smear 2006 [facility]-Cervical Cancer Screening 11/09/2015 [facility]-HPV/Cotest 11/09/2015 [id number] Vaccine (1 - 2023- season) 2023 [facility]-Influenza Vaccine (#1) 10/31/202401/08, 12/05/2021, 11/22/2014, Additional history exists [facility]-DTaP,Tdap,and Td Vaccines (4 - Td or Tdap) 03/03/2033 03/03/2023, 10/15/2011, 08/19/2000 [facility]-Zoster Vaccines (1 of 2) 11/09/2035 [facility]-Hepatitis A Vaccines Aged Out 02/11/2019 No longer eligible based on patient's age to complete this topic [facility]-Obesity Intervention Completed 024, 04/05/2023, 03/26/2023 [facility]-HIB Vaccines Aged Out No longer e ligible based on patient's age to complete this topic [facility]-IPV Vaccines Aged Out No longer e ligible based on patient's age to complete this topic [facility]-Pneumococcal Vaccine: Pediatrics (0 to 5 Years) and At-Risk Patients (6 to 49 Years) Aged Out No longer eligible based on patient's age to complete this topic [facility]-Rotavirus Vaccines Aged Out No lo nger eligible based on patient's age to complete this topic Insurance [employer] Advance Directives * Full Code (Latest Code Status on File) Date Activated Date Inactivated Comments 04/12/2023 1:47 AM 04/13/2023 2:03 PM Question Answer Comments Patient has decision-making capacity? Yes * Full Code Date Activated Date Inactivated Comments 04/05/2023 10:11 PM 04/07/2023 12:01 PM Question Answer Comments Patient has decision-making capacity? Yes Care Teams Geothermal Production Manager Relationship Specialty Start Date End Date Marlee Ramirez PA [address] [place] [address] PCP - General 07/13/20
--- OUTSIDE RECORDS SUMMARY | 2024-09-29 18:06 | XMS_ITS | Encounter Summary ---
Author Organization Healthcare Address [address] [place] [address] Care Team Providers Care Collar Baster Jumpbasting Name Role Phone Marlee Ramirez Primary Care Provider [phone] Encounter Details Date Type Department Care Team (Late st Contact Info) Description 11/11/2022 Community [facility] Community Practice [address] [place] [address] Ida Amado MD [address] [place] [address] Supervision of elderly primigravida, first trimester (Primary Dx); Essential (primary) hypertension; Supervision of other high risk pregnancies, unspecified trimester Social History Tobacco Use Types Packs/Day Years Used Date Smoking Tobacco: Never Alcohol Use Standard Drinks/Week Comments No 0 (1 standard drink = 0.6 oz pure alcohol) Alcoholic Drinks/day: Never Drank Alcohol Comments Unknown Sex and Gender Information Value Date Recorded [...] Primary Essential (primary) hypertension Unspecified essential hypertension Supervision of other high risk pregnancies, unspecified trimester documented in this encounter Care Teams Collar Baster Jumpbasting Relationship Specialty Start Date End Date Marlee Ramirez PA [address] [place] [id number] PCP - General 07/13/20 documented as of this encounter
--- OUTSIDE RECORDS SUMMARY | 2024-09-29 18:06 | XMS_ITS | Encounter Summary ---
Author Organization Healthcare Address [address] [place] [address] Care Team Providers Care Chicken Picker Name Role Phone Marlee Ramirez Primary Care Provider [phone] Encounter Details Date Type Department Care Team (Late st Contact Info) Description 12/24/2022 [facility] [address] [place] [address] Marlee Irwin, DO [address] [place] [address] Supervision of elderly primigravida, first [...] hypertension documented in this encounter Care Teams Chicken Picker Relationship Specialty Start Date End Date Marlee Ramirez PA [address] [place] [id number] PCP - General 07/13/20 documented as of this encounter
--- OUTSIDE RECORDS SUMMARY | 2024-09-29 18:06 | XMS_ITS | Encounter Summary ---
Author Organization [facility] Address [address] [id number] Care Team Providers Care Gas Compressor Turbine Operator Name Role Phone Marlee Ramirez Primary Care Provider [phone] Reason for Referral * Consultation (Routine) - Authorized Specialty Diagnoses / Procedures Referred By Rg t Referred To Contact Maternal and Medicine / Obstetrics and Gynecology Diagnoses Supervision of elderly primigravida, first trimester Essential (primary) hypertension Marlee Irwin DO [address] [place] [address] Phone: tel: fax: Referral ID Status Reason Start Date Expiration Date Visits Requested Visits Authorized [id number] Authorized Specialty Services Required 04/08/2023 10/07/2024 1 1 Encounter Details Date Type Department Care Team (Late st Contact Info) Description 04/08/2023 Community [facility] Community Practice [address] [place] [address] [place] [address] Supervision of elderly primigravida, first [...] drink first t barry in the morning (EYE-NEUROPSYCHOLOGY DIVISION CHIEF) to steady your nerves or to get rid of a hangover? 0 04/12/2023 CAGE Questionnaire Score 0 024 Comments Yes Sex and Gender Information Value Date Recorded Sex Assigned at Female 11/12/2022 6:26 AM EDT Legal Sex Female 8:23 PM EDT Gender Identity Female 11/12/2022 6:26 AM EDT Sexual Orientation Don't know 11/12/2022 6: 26 AM EDT documented as of this encounter Plan of Treatment Scheduled Referrals Name Type Priority Associated Diagnoses Orde r Schedule Ambulatory referral to Obstetrics (Maternal and Medicine) Outpatient Referral Routine Supervision of elderly primigravida, first trimester Essential (primary) hypertension 1 Occurrences starting 04/08/2023 until 10/06/2024 documented as of this encounter Visit Diagnoses Diagnosis Supervision of elderly primigravida, first trimester- Primary Essential (primary) hypertension Unspecified essential hypertension documented in this encounter Additional Health Concerns Assessment Noted Time A Body Mass Index follow-up plan has been documented for the patient 04/07/2023 9:04 AM EST documented as of this encounter Care Teams Gas Compressor Turbine Operator Relationship Specialty Start Date End Date Marlee Ramirez PA [address] [place] [address] PCP - General 07/13/20 documented as of this encounter
--- OUTSIDE RECORDS SUMMARY | 2024-09-29 18:06 | XMS_ITS | Encounter Summary ---
Author Organization Healthcare Address [address] [place] [address] Care Team Providers Care Director Of Coding Name Role Phone Marlee Ramirez Primary Care Provider Encounter Details Date Type Department Care Team (Late st Contact Info) Description 02/16/2023 Community Orders Community Practice [address] [place] [address] Caterina Whitlock MD [address] [place] [address] [place] [address] Social History Tobacco Use Types Packs/Day Years [...] documented as of this encounter Visit Diagnoses Not on filedocumented in this encounter Care Teams Director Of Coding Relationship Specialty Start Date End Date Marlee Ramirez PA [address] [place] [address] PCP - General 07/13/20 documented as of this encounter
[2024-09-29 18:55] VITALS: BP 128/70; PULSE 59; RESP 20; TEMP 36.7; O2SAT 97
== END 2024-09-29 18:56 | disposition home or self-care (01) ==
PROVIDERS: Emergency Provider Emergency Medicine; PCP Nurse Practitioner Family
DX: S90.852A Superficial foreign body, left foot, initial encounter (principal); I10 Essential (primary) hypertension; F17.200 Nicotine dependence, unspecified, uncomplicated; W22.8XXA Striking against or struck by other objects, initial encounter
CPT/HCPCS: 28190; 99283

== ENCOUNTER 2024-10-11 10:25 | Outpatient (CLI) | payer MEDICAID, SELFPAY ==
--- NOTE | 2024-10-11 | CA_ITS ---
FINAL REPORT CLINICAL HISTORY: HTN, H/O right kidney stones with drain tubes COMPARISON: None FINDINGS: Limited images of the liver parenchyma demonstrate normal echogenicity. The right kidney demonstrates severe hydronephrosis with significant cortical thinning, with essentially no renal cortex is seen. This may be secondary to chronic UPJ obstruction or longstanding stone obstruction of the right renal pelvis and ureter. The arterial velocities are normal. RI is 0.76-0.93, elevated. The renal artery/aortic ratio: 1.4. The left kidney measures 14 cm in length. It is normal echogenicity. There is no hydronephrosis. RI is 0.54-0.60. The renal artery/aortic ratio: 1.7. IMPRESSION: Severe hydronephrosis with significant cortical thinning in the right kidney, with slight elevation of the resistive indices. The left kidney is unremarkable without evidence of elevated velocities. Reviewed, Interpreted and Dictated by Nikki Alberto MD Transcribed by Alyce Delarosa Authenticated and [facility]
--- OUTSIDE RECORDS SUMMARY | 2024-10-11 10:34 | XMS_ITS | Encounter Summary ---
Author Organization Healthcare Address [address] [place] [address] Care Team Providers Care Plant Attendant Or Assistant Operator Name Role Phone Marlee Ramirez Primary Care Provider Encounter Details Date Type Department Care Team (Late st Contact Info) Description 11/11/2022 Community [facility] Community Practice [address] [place] [address] Ida Amado MD [address] [place] [address] Supervision of elderly primigravida, first [...] trimester documented in this encounter Care Teams Plant Attendant Or Assistant Operator Relationship Specialty Start Date End Date Marlee Ramirez PA [address] [place] [address] PCP - General 07/13/20 documented as of this encounter
--- OUTSIDE RECORDS SUMMARY | 2024-10-11 10:34 | XMS_ITS | Encounter Summary ---
Author Organization [facility] Address [address] [place] [address] Care Team Providers Care Heavy Cleaner Name Role Phone Marlee Ramirez Primary Care Provider Encounter Details Date Type Department Care Team (Late st Contact Info) Description 04/08/2023 Community Orders Community Practice [address] [place] [address] Marlee Irwin, DO [address] [place] [address] Supervision of elderly primigravida, first [...] drink first t barry in the morning (EYE-INTERNATIONAL MARKETING SPECIALIST) to steady your nerves or to get [...] documented as of this encounter Care Teams Heavy Cleaner Relationship Specialty Start Date End Date Marlee Ramirez PA [address] [address] PCP - General 07/13/20 documented as of this encounter
--- OUTSIDE RECORDS SUMMARY | 2024-10-11 10:34 | XMS_ITS | Encounter Summary ---
Author Organization [facility] Address [address] [place] [address] Care Team Providers Care Library Supervisor Name Role Phone Marlee Ramirez Primary Care Provider Encounter Details Date Type Department Care Team (Late st Contact Info) Description 02/16/2023 Community Orders Community Practice [address] [place] [address] Caterina Whitlock MD [address] [place] [address] [place] [address] Social History Tobacco Use Types Packs/Day Years [...] on filedocumented in this encounter Care Teams Library Supervisor Relationship Specialty Start Date End Date Marlee Ramirez PA [address] [place] [address] PCP - General 07/13/20 documented as of this encounter
--- OUTSIDE RECORDS SUMMARY | 2024-10-11 10:34 | XMS_ITS | Clinical Summary ---
Author Organization [facility] Address [address] [place] [address] Care Team Providers Care Program Manager Name Role Phone Marlee Ramirez Primary Care Provider [phone] Allergies Active Allergy Reactions Criticality Noted Date [...] drink first t barry in the morning (EYE-PROPERTY INSPECTOR) to steady your nerves or to get [...] of 2 - 13+ 2-dose series) 1998 [facility]- SDOH Screenings 11/09/2003 [facility]-Adult SDOH Screenings 11/09/2003 [facility]-Hepatitis B Vaccines (1 of 3 - 19+ 3-dose series) 2004 [facility]-Pap Smear 2006 HPV Vaccines (1 - 3-dose SCDM series) 2012 [facility]-Cervical Cancer Screening 11/09/2015 [facility]-HPV/Cotest 11/09/2015 [id number] Vaccine (1 - 2023- season) 2023 [facility]-Influenza [...] Patient has decision-making capacity? Yes Care Teams Program Manager Relationship Specialty Start Date End Date Marlee Ramirez PA [address] [place], [place] [phone] PCP - General 07/13/20
--- OUTSIDE RECORDS SUMMARY | 2024-10-11 10:34 | XMS_ITS | Encounter Summary ---
Author Organization [facility] Address [address] [place] [address] Care Team Providers Care Gift Shop Clerk Name Role Phone Marlee Ramirez Primary Care Provider Encounter Details Date Type Department Care Team (Latest Contact Info) Description 03/25/2023 Community [facility] Community Practice [address] [place] [address] Caterina Whitlock MD [address] [facility] [place] [address] Supervision of elderly primigravida, first trimester (Primary [...] hypertension documented in this encounter Care Teams Gift Shop Clerk Relationship Specialty Start Date End Date Marlee Ramirez PA [facility] [address] [address] PCP - General 07/13/20 documented as of this encounter
--- OUTSIDE RECORDS SUMMARY | 2024-10-11 10:34 | XMS_ITS | Encounter Summary ---
Author Organization [facility] Address [address] [place] [address] Care Team Providers Care Grain Operator Name Role Phone Marlee Ramirez Primary Care Provider Encounter Details Date Type Department Care Team (Late st Contact Info) Description 12/24/2022 Community Orders Community Practice [address] [place] [address] Marlee Irwin, DO [address] [place] [address] Supervision of elderly primigravida, first [...] hypertension documented in this encounter Care Teams Grain Operator Relationship Specialty Start Date End Date Marlee Ramirez PA [address] [place] [address] PCP - General 07/13/20 documented as of this encounter
== END 2024-10-11 23:59 | disposition home or self-care (01) ==
LOC: RT 10:26
PROVIDERS: PCP Nurse Practitioner Family; Visit Provider Nurse Practitioner Family
DX: N13.30 Unspecified hydronephrosis (principal); I10 Essential (primary) hypertension; R93.421 Abnormal radiologic findings on diagnostic imaging of right kidney; Z87.442 Personal history of urinary calculi
CPT/HCPCS: 93976

== ENCOUNTER 2024-11-14 10:04 | Outpatient (CLI) | payer MEDICAID, SELFPAY ==
--- OUTSIDE RECORDS SUMMARY | 2024-11-14 10:08 | XMS_ITS | Encounter Summary ---
Author Organization [facility] Address [address] [place] [address] Care Team Providers Care Retail Zone Specialist Name Role Phone Marlee Ramirez Primary Care Provider [phone] Encounter Details Date Type Department Care Team (Late st Contact Info) Description 04/08/2023 Community Orders Community Practice [address] [place] [address] Marlee Irwin, DO [address] [place] [address] Supervision of elderly primigravida, first [...] drink first t barry in the morning (EYE-BARREL STAVE INSPECTOR) to steady your nerves or to [...] documented as of this encounter Care Teams Retail Zone Specialist Relationship Specialty Start Date End Date Marlee Ramirez PA [address] [address] PCP - General 07/13/20 documented as of this encounter
--- OUTSIDE RECORDS SUMMARY | 2024-11-14 10:08 | XMS_ITS | Encounter Summary ---
Author Organization [facility] Address [address] [place] [address] Care Team Providers Care Applier Name Role Phone Marlee Ramirez Primary Care Provider Encounter Details Date Type Department Care Team (Late st Contact Info) Description 11/11/2022 Community [facility] Community Practice [address] [place] [address] Ida Amado MD [address] [place] [address] Supervision of elderly primigravida, first [...] trimester documented in this encounter Care Teams Applier Relationship Specialty Start Date End Date Marlee Ramirez PA [address] [place] [address] PCP - General 07/13/20 documented as of this encounter
--- OUTSIDE RECORDS SUMMARY | 2024-11-14 10:09 | XMS_ITS | Encounter Summary ---
Author Organization [facility] Address [address] [place] [address] Care Team Providers Care Return To Service Inspector Name Role Phone Marlee Ramirez Primary Care Provider [phone] Encounter Details Date Type Department Care Team (Late st Contact Info) Description 12/24/2022 Community Orders Community Practice [address] [place] [address] Marlee Irwin, DO [address] [place] [address] Supervision of elderly primigravida, first [...] hypertension documented in this encounter Care Teams Return To Service Inspector Relationship Specialty Start Date End Date Marlee Ramirez PA [address] [place] [address] PCP - General 07/13/20 documented as of this encounter
--- OUTSIDE RECORDS SUMMARY | 2024-11-14 10:09 | XMS_ITS | Clinical Summary ---
Author Organization [facility] Address [address] [place] [address] Care Team Providers Care Gas Derrick Operator Name Role Phone Marlee Ramirez Primary Care Provider [phone] Allergies Active Allergy Reactions Criticality Noted Date [...] drink first t barry in the morning (EYE-GEOGRAPHIC ANALYST) to steady your nerves or to get [...] 2012 [facility]-Cervical Cancer Screening 11/09/2015 [facility]-HPV/Cotest 11/09/2015 [id number] Vaccine (1 - 2023- season) 2024 [facility]-Influenza Vaccine (#1) 10/31/202401/08, 12/05/2021, 11/22/2014, Additional [...] Patient has decision-making capacity? Yes Care Teams Gas Derrick Operator Relationship Specialty Start Date End Date Marlee Ramirez PA [address] [place], [place] [phone] PCP - General 07/13/20
--- OUTSIDE RECORDS SUMMARY | 2024-11-14 10:09 | XMS_ITS | Encounter Summary ---
Author Organization [facility] Address [address] [place] [address] Care Team Providers Care Income Tax Administrator Name Role Phone Marlee Ramirez Primary Care Provider Encounter Details Date Type Department Care Team (Late st Contact Info) Description 02/16/2023 Community Orders Community Practice [address] [place] [address] Caterina Whitlock MD [address] [place] [address] [place] [address] Social History Tobacco Use Types Packs/Day Years [...] on filedocumented in this encounter Care Teams Income Tax Administrator Relationship Specialty Start Date End Date Marlee Ramirez PA [address] [place] [address] PCP - General 07/13/20 documented as of this encounter
--- OUTSIDE RECORDS SUMMARY | 2024-11-14 10:09 | XMS_ITS | Encounter Summary ---
Author Organization [facility] Address [address] [place] [address] Care Team Providers Care Lock Plater Name Role Phone Marlee Ramirez Primary Care Provider Encounter Details Date Type Department Care Team (Latest Contact Info) Description 03/25/2023 Community [facility] Community Practice [address] [place] [address] Caterina Whitlock MD [address] [place] [address] Supervision of elderly primigravida, first trimester (Primary [...] hypertension documented in this encounter Care Teams Lock Plater Relationship Specialty Start Date End Date Marlee Ramirez PA [facility] [address] [address] PCP - General 07/13/20 documented as of this encounter
--- NOTE | 2024-11-14 10:15 | CA_ITS ---
APPROVED REPORT EXAM: Comprehensive 2D, Doppler, and color-flow Echocardiogram Occupational Therapist Per Diem: Emely Kelley CRT Ht: 5 ft 8 in Wt: 253lbs BSA: 2.26 BP: 149/59 mmHg Indications: Chest Pain, Shortness of Breath, Hypertension/HDD, smoker 2D Dimensions LA Volume 54.50 mL LA Volume Index 23.60 mL/m2 (M/F) 16-34 M-Mode Dimensions RVDd 1.53 cm (0.9-2.6) LA Diam 3.54 cm (1.9-4.0) LVDd 5.03 cm (3.5-5.7) LVDs 2.32 cm (3.5-5.7) IVSd 1.00 cm (0.6-1.1) PWd 0.75 cm (0.6-1.1) EF (Teich) 84.60% FS 53.90% EDV (Teich) 119.90 mL TAPSE 1.92 (<1.7) ESV (Teich) 18.50 mL LV Diastology E Decel Time 273 (160-240 msec) E/A Ratio 2.19 MED A' 8.50 cm/s LAT A' 10.40 cm/s Aortic Valve AO Peak GR. 10.00 mmHg Mitral Valve MV A Velocity 60.0 (40-130 cm/s) E/A Ratio 2.19 Pulmonary Valve PV Peak Velocity 67.0 (50-150 cm/s) Tricuspid Valve TR P. Velocity 250.00 cm/s RAP Estimate 10.00 mmHg RVSP 35.00 mmHg Left Ventricle The left ventricle is normal size. Left ventricular systolic function is normal. The left ventricular ejection fraction is within the normal range. There is normal left ventricular wall thickness. There is normal LV segmental wall motion. The left ventricular diastolic function is normal. LVEF is 55%. Right Ventricle The right ventricle is normal size. The right ventricular systolic function is normal. Atria The left atrium is mildly dilated. The right atrium is mildly dilated. There is no color Doppler evidence of interatrial shunt. Aortic Valve The aortic valve opens well. There is no hemodynamically significant aortic valvular stenosis. Trace aortic regurgitation is present. Mitral Valve The mitral valve is normal in structure. No evidence of mitral valve stenosis. Mild mitral regurgitation is present. Tricuspid Valve The tricuspid valve leaflets are thin and pliable. Mild tricuspid regurgitation. RVSP is 20-25 mmHg. Pulmonic Valve The pulmonary valve is grossly normal in structure. Trace pulmonic valve regurgitation is present. Great Vessels The aortic root is normal in size. IVC is normal in size and collapses >50% with inspiration. Pericardium There is no pericardial effusion. Other Information Study Quality: Fair Conclusion Normal biventricular systolic function. Mild biatrial dilation. Mild MR, mild TR. Electronically signed by : Maryse Palacio MD 11/14/2024 21:48:13
== END 2024-11-14 23:59 | disposition home or self-care (01) ==
LOC: RT 10:05
PROVIDERS: PCP Nurse Practitioner Family; Visit Provider Physician Assistant
DX: I08.1 Rheumatic disorders of both mitral and tricuspid valves (principal); I11.9 Hypertensive heart disease without heart failure; F17.200 Nicotine dependence, unspecified, uncomplicated; R42 Dizziness and giddiness
CPT/HCPCS: 93306

== ENCOUNTER 2025-01-23 13:00 | Outpatient (CLI) | payer MEDICAID, SELFPAY ==
--- OUTSIDE RECORDS SUMMARY | 2025-01-23 13:11 | XMS_ITS | Clinical Summary ---
Author Organization [facility] Address [address] [place] [address] Care Team Providers Care Shipping And Receiving Weigher Name Role Phone Marlee Ramirez Primary Care [...] maternal age in third t rimester 04/06/2023 labor without delivery, third trimester 04/05/2023 Resolved Problems Problem Noted Date Diagnosed Date Resolved Date Maternal care for unspecifie d type scar from previous delivery 04/06/2023 11/20/2024 Family History Medical History Relation Name Comments [...] drink first t barry in the morning (EYE-FUNERAL COUNSELOR) to steady your nerves or to get rid of a hangover? 0 04/12/2023 CAGE Questionnaire Score 0 024 Comments Unknown Sex and Gender Information Value [...] [facility]-HIV Screening 1985 [facility]-Hepatitis C Screening 1985 [facility]-/Child/Adol SDOH Screenings 1985 [facility]-Varicella Vaccines (1 of 2 - 13+ 2-dose series) 1998 [facility]- SDOH Screenings 11/09/2003 [facility]-Adult SDOH Screenings 11/09/2003 [facility]-Hepatitis B Vaccines (1 of 3 - 19+ 3-dose series) 2004 [facility]-Pap Smear 2006 HPV Vaccines (1 - 3-dose SCDM series) 2012 [facility]-Cervical Cancer Screening 11/09/2015 [facility]-HPV/Cotest 11/09/2015 [id number] Vaccine (1 - 2024- season) 2024 [facility]-Influenza Vaccine (#1) 10/31/202401/08, 12/05/2021, [...] patient's age to complete this topic Insurance [facility] MEDICAID Advance Directives * Full Code (Latest Code Status on File) Date Activated Date Inactivated Comments 04/12/2023 1:47 AM 04/13/2023 2:03 PM Question Answer Comments Patient has decision-making capacity? Yes * Full Code Date Activated Date Inactivated Comments 04/05/2023 10:11 PM 04/07/2023 12:01 PM Question Answer Comments Patient has decision-making capacity? Yes Care Teams Shipping And Receiving Weigher Relationship Specialty Start Date End Date Marlee Ramirez PA [address] [place] [address] PCP - General 07/13/20
--- OUTSIDE RECORDS SUMMARY | 2025-01-23 13:11 | XMS_ITS | Encounter Summary ---
Author Organization Healthcare Address [address] [place] [address] Care Team Providers Care Harness Repairer Name Role Phone Marlee Ramirez Primary Care Provider Encounter Details Date Type Department Care Team (Late st Contact Info) Description 12/24/2022 Community Orders Community Practice [address] [place] [address] Marlee Irwin, DO [address] [place] [address] Supervision of elderly primigravida, first [...] hypertension documented in this encounter Care Teams Harness Repairer Relationship Specialty Start Date End Date Marlee Ramirez PA [address] [place] [address] PCP - General 07/13/20 documented as of this encounter
--- OUTSIDE RECORDS SUMMARY | 2025-01-23 13:11 | XMS_ITS | Encounter Summary ---
Author Organization Healthcare Address [address] [place] [address] Care Team Providers Care College Physics Instructor Name Role Phone Marlee Ramirez Primary Care Provider Encounter Details Date Type Department Care Team (Late st Contact Info) Description 11/11/2022 Community [facility] Community Practice [address] [place] [address] Ida Amado MD [address] [place] [address] Supervision of elderly primigravida, first [...] trimester documented in this encounter Care Teams College Physics Instructor Relationship Specialty Start Date End Date Marlee Ramirez PA [address] [place] [address] PCP - General 07/13/20 documented as of this encounter
--- OUTSIDE RECORDS SUMMARY | 2025-01-23 13:11 | XMS_ITS | Encounter Summary ---
Author Organization [facility] Address [address] [place] [address] Care Team Providers Care Landscape Architect Name Role Phone Marlee Ramirez Primary Care Provider Encounter Details Date Type Department Care Team (Late st Contact Info) Description 04/08/2023 Community Orders Community Practice [address] [place] [address] Marlee Irwin, DO [address] [place] [address] Supervision of elderly primigravida, first [...] drink first t barry in the morning (EYE-ROTARY SHEAR WORKER HELPER) to steady your nerves or to get [...] documented as of this encounter Care Teams Landscape Architect Relationship Specialty Start Date End Date Marlee Ramirez PA [address] [address] PCP - General 07/13/20 documented as of this encounter
--- OUTSIDE RECORDS SUMMARY | 2025-01-23 13:12 | XMS_ITS | Encounter Summary ---
Author Organization Healthcare Address [address] [place] [address] Care Team Providers Care Java Support Engineer Name Role Phone Marlee Ramirez Primary Care Provider Encounter Details Date Type Department Care Team (Latest Contact Info) Description 03/25/2023 Community [facility] Community Practice [address] [place] [address] Caterina Whitlock MD [address] [place] [address] Supervision of elderly primigravida, first trimester (Primary [...] hypertension documented in this encounter Care Teams Java Support Engineer Relationship Specialty Start Date End Date Marlee Ramirez PA [facility] [address] [address] PCP - General 07/13/20 documented as of this encounter
--- OUTSIDE RECORDS SUMMARY | 2025-01-23 13:12 | XMS_ITS | Encounter Summary ---
Author Organization Healthcare Address [address] [place] [address] Care Team Providers Care Heat Regulator Name Role Phone Marlee Ramirez Primary Care Provider Encounter Details Date Type Department Care Team (Late st Contact Info) Description 02/16/2023 Community Orders Community Practice [address] [place] [address] Caterina Whitlock MD [address] [place] [address] [place] [address] Social History Tobacco Use Types Packs/Day Years [...] on filedocumented in this encounter Care Teams Heat Regulator Relationship Specialty Start Date End Date Marlee Ramirez PA [address] [place] [address] PCP - General 07/13/20 documented as of this encounter
[2025-01-23 13:50] LABS: Hematocrit 35.0 % (37.0-47.0); Hemoglobin 10.3 g/dL (12.2-16.2); Mean Corpuscular HGB Conc 29.4 g/dL (31.8-35.4); Mean Corpuscular Hemoglobin 22.9 pg (27.0-31.2); Mean Corpuscular Volume 78.0 fl (81-99); Nucleated Red Blood Cells % 0 %; Platelet Count 318 K/mm3 (142-424); Red Blood Count 4.49 M/mm3 (4.20-5.40); Red Cell Distribution Width-SD 44.1 fL; White Blood Count 7.2 K/mm3 (4.8-10.8)
[2025-01-23 14:04] LABS: Albumin Level 4.2 g/dl (3.5-5.0); Chloride 100 mmol/L (98-107); Potassium 4.2 mmoL/L (3.5-5.1); Sodium 140 mmol/L (136-145)
[2025-01-23 14:07] LABS: Alanine Aminotransferase 12 U/L (12-78); Albumin/Globulin Ratio 1.6 (1.1-1.8); Alkaline Phosphatase 61 U/L (38-126); Anion Gap 15.2 mEq/L (5-15); Aspartate Amino Transferase 17 U/L (14-36); Bilirubin,Total 0.2 mg/dl (0.2-1.3); Blood Urea Nitrogen 18 mg/dl (7-17); Carbon Dioxide 29 mmol/L (22.0-30.0); Creatinine,Serum 1.10 mg/dl (0.52-1.04); Estimated Glomerular Filt Rate 55 ml/min (>60); GFR (African American) 67 ML/MIN (>60); Globulin 2.7 g/dL (1.3-3.2); Total Protein,Serum 6.9 g/dl (6.3-8.2)
[2025-01-23 14:08] LABS: Calcium 9.2 mg/dl (8.4-10.2); Glucose 105 mg/dl (74-100)
[2025-01-30 10:10] LABS: Hepatitis C Quant. HCV Not Detected IU/mL (.)
== END 2025-01-23 23:59 | disposition home or self-care (01) ==
LOC: LAB 13:01
PROVIDERS: PCP Nurse Practitioner Family; Visit Provider Obstetrics & Gynecology
DX: F11.20 Opioid dependence, uncomplicated (principal)
CPT/HCPCS: 36415; 80053; 80074; 85027; 87389; 87522